=== PATIENT | female | born 1935 | race Caucasian/White ===

== ENCOUNTER → 2016-10-31 | Outpatient (CLI) | payer MEDICARE ==
--- NOTE | 2016-10-31 14:31 | US ---
EXAMINATION TYPE: US abdomen comp/pelvis limited DATE OF EXAM: 10/31/2016 1:54 PM COMPARISON: NONE CLINICAL HISTORY: R10.9 Unspecified abdominal pain. Nausea EXAM MEASUREMENTS: Liver Length: N/A Gallbladder Wall: 0.2 cm CBD: N/A Spleen: 12.5 cm Right Kidney: 9.9 x 3.5 x 4.7 cm Left Kidney: 10.8 x 4.6 x 6.7 cm elderly patient has vertigo and could not lay flat, unable to roll on her side ,large body habitus and bowel gas Pancreas: wnl Liver: unable to assess, overlying bowel gas completely obscured subcostal and intercostal views So me moderate fatty infiltration of liver is likely present. Gallbladder: wnl CBD: unable visualize Spleen: wnl Right Kidney: cortical thinning Left Kidney: cortical thinning Upper IVC: wnl Abd Aorta: calcification seen Bladder: wnl called office with tech impression @ 2:00 IMPRESSION: 1. Limited examination due to patient body habitus and level of cooperation. 2. Obvious abnormality to account for patient's abdominal pain is not evident on ultrasound.
== END | disposition home or self-care (01) ==
LOC: RADUSWWP 13:22
PROVIDERS: ATTEND Family Medicine
DX: R10.9 Unspecified abdominal pain (principal)
CPT/HCPCS: 76700; 76857

== ENCOUNTER 2017-02-11 18:22 | Inpatient (IN) | payer MEDICARE ==
[2017-02-11] MEDS ORDERED: SODIUM CHLORIDE 0.9% 1,000 ML IV STA (19:09)
[2017-02-11] MEDS ORDERED: PANTOPRAZOLE 40 MG/10 ML VIAL IVP STA (19:09)
[2017-02-11 19:12] LABS: Glucose,Whole Blood 183 mg/dL (75-99)
--- NOTE | 2017-02-11 19:13 | ED ---
General Adult HPI - General Chief complaint: Dizziness Stated complaint: dizzy/Fall/rectal bleding Time Seen by Provider: 02/11/17 18:56 Source: patient, family, RN notes reviewed Mode of arrival: wheelchair Limitations: no limitations - History of Present Illness Initial comments: Patient is a pleasant 81-year-old female presenting to the emergency department with dizziness and lightheadedness. Patient does describe dizziness as feeling lightheaded. No sweating type sensation. Symptoms are worse with upright position on exertion. Patient did have an episode prior to arrival where she almost fell. This was followed by an episode of bright red blood per rectum. Patient has been having abdominal problems for the past month or so. Patient was once seen and found it not to be the gallbladder. Patient states symptoms have been intermittent and does currently not wanting eat for days. No history of rectal bleeding prior to prior to arrival. No head injury or trauma. Patient was sweaty with lightheaded episodes. - Related Data Home Medications Medication Instructions Recorded Confirmed Aspirin [Children's Aspirin] 81 mg PO DAILY 02/11/17 02/11/17 Atorvastatin [Lipitor] 20 mg PO DAILY 02/11/17 02/11/17 Diclofenac Sodium [Diclofenac 100 mg PO DAILY 02/11/17 02/11/17 Sodium ER] Estradiol 0.5 mg PO DAILY 02/11/17 02/11/17 Furosemide [Lasix] 20 mg PO BID 02/11/17 02/11/17 Losartan-Hctz 50-12.5 mg [Hyzaar 1 tab PO BID 02/11/17 02/11/17 50-12.5] Meloxicam [Mobic] 15 mg PO DAILY 02/11/17 02/11/17 Multivitamins, Thera [Multivitamin 1 tab PO DAILY 02/11/17 02/11/17 (formulary)] [place]-3 Fatty Acids/Fish Oil [Fish 1 cap PO DAILY 02/11/17 02/11/17 Oil 1,000 mg Softgel] Ranitidine HCl 150 mg PO BID 02/11/17 02/11/17 quiNIDine SULFATE [quiNIDine 300 mg PO TID 02/11/17 02/11/17 SULFATE] Allergies Allergy/AdvReac Type Severity Reaction Status Date / Time codeine Allergy Nausea & Verified 02/11/17 19:17 Vomiting Review of Systems ROS Statement: Those systems with pertinent positive or pertinent negative responses have been documented in the HPI. ROS Other: All systems not noted in ROS Statement are negative. Constitutional: Denies: fever Eyes: Denies: eye pain ENT: Denies: ear pain Respiratory: Denies: cough Cardiovascular: Denies: chest pain Endocrine: Denies: fatigue Gastrointestinal: Reports: hematochezia. Denies: abdominal pain Genitourinary: Denies: dysuria Musculoskeletal: Denies: back pain Skin: Denies: rash Neurological: Denies: headache Past Medical History Additional Past Medical History / Comment(s): kidney stones History of Any Multi-Drug Resistant Organisms: None Reported Past Surgical History: Hysterectomy Additional Past Surgical History / Comment(s): lithotripsy Past Psychological History: No Psychological Hx Reported Smoking Status: Never smoker Past Alcohol Use History: None Reported Past Drug Use History: None Reported General Exam Limitations: no limitations General appearance: alert, in no apparent distress Head exam: Present: atraumatic Eye exam: Present: normal appearance, PERRL, EOMI ENT exam: Present: normal oropharynx Neck exam: Present: normal inspection Respiratory exam: Present: normal lung sounds bilaterally Cardiovascular Exam: Present: regular rate, normal rhythm GI/Abdominal exam: Present: soft. Absent: tenderness Rectal exam: Present: bloody stool Back exam: Present: normal inspection Neurological exam: Present: alert, CN II-XII intact. Absent: motor sensory deficit Psychiatric exam: Present: normal affect, normal mood Skin exam: Present: normal color Course Vital Signs 02/11/17 02/11/17 18:24 20:12 Temperature 99.1 F 98.7 F Pulse Rate 98 88 Respiratory 20 16 Rate Blood Pressure 149/70 154/65 O2 Sat by Pulse 99 99 Oximetry EKG Findings - EKG Comments: EKG Findings:: Normal sinus rhythm 95. [place] 186. QRS 88. QT 366. QTc 49. Left axis. Normal QRS. No acute ST change. Medical Decision Making - Medical Decision Making Results of Hemoccult are highly question as patient had gross blood on exam. Previous hemoglobin is unavailable. Secondary to high white blood cell count and borderline elevation of temperature computed tomography scan will be ordered to evaluate for possible diverticulitis. Patient was discussed in detail with practitioner Milady bolanos, who will admit for Dr. Bagley, covering for Dr. stokes, who admits for Dr. Johnson. Patient reevaluated and patient and family were updated. - Lab Data Result diagrams: 02/11/17 19:15 02/11/17 19:15 Lab Results 02/11/17 02/11/17 02/11/17 Range/Units 19:06 19:15 19:15 WBC 20.3 H (3.8-10.6) k/uL RBC 3.43 L (3.80-5.40) m/uL Hgb 9.8 L (11.4-16.0) gm/dL Hct 29.7 L (34.0-46.0) % MCV 86.4 (80.0-100.0) fL MCH 28.6 (25.0-35.0) pg MCHC 33.1 (31.0-37.0) g/dL RDW 14.4 (11.5-15.5) % Plt Count 322 (150-450) k/uL Neutrophils % 90 % Lymphocytes % 4 % Monocytes % 3 % Eosinophils % 0 % Basophils % 0 % Neutrophils # 18.4 H (1.3-7.7) k/uL Lymphocytes # 0.8 L (1.0-4.8) k/uL Monocytes # 0.7 (0-1.0) k/uL Eosinophils # 0.0 (0-0.7) k/uL Basophils # 0.1 (0-0.2) k/uL APTT (22.0-30.0) sec Sodium (137-145) mmol/L Potassium (3.5-5.1) mmol/L Chloride (98-107) mmol/L Carbon Dioxide (22-30) mmol/L Anion Gap mmol/L BUN (7-17) mg/dL Creatinine (0.52-1.04) mg/dL Est GFR (MDRD) Af Amer (>60 ml/min/1.73 sqM) Est GFR (MDRD) Non-Af (>60 ml/min/1.73 sqM) Glucose (74-99) mg/dL POC Glucose (mg/dL) 183 H (75-99) mg/dL POC Glu Nurses' Aide ID Rad [place] Calcium (8.4-10.2) mg/dL Total Bilirubin (0.2-1.3) mg/dL AST (14-36) U/L ALT (9-52) U/L Alkaline Phosphatase (38-126) U/L Total Creatine Kinase 36 (30-135) U/L CK-MB (CK-2) 0.4 (0.0-2.4) ng/mL CK-MB (CK-2) Rel Index 1.1 Troponin I <0.012 (0.000-0.034) ng/mL Total Protein (6.3-8.2) g/dL Albumin (3.5-5.0) g/dL Stool Occult Blood (Negative) Blood Type Blood Type Recheck Antibody Screen Spec Expiration Date 02/11/17 02/11/17 02/11/17 Range/Units 19:15 19:15 19:15 WBC (3.8-10.6) k/uL RBC (3.80-5.40) m/uL Hgb (11.4-16.0) gm/dL Hct (34.0-46.0) % MCV (80.0-100.0) fL MCH (25.0-35.0) pg MCHC (31.0-37.0) g/dL RDW (11.5-15.5) % Plt Count (150-450) k/uL Neutrophils % % Lymphocytes % % Monocytes % % Eosinophils % % Basophils % % Neutrophils # (1.3-7.7) k/uL Lymphocytes # (1.0-4.8) k/uL Monocytes # (0-1.0) k/uL Eosinophils # (0-0.7) k/uL Basophils # (0-0.2) k/uL APTT 26.8 (22.0-30.0) sec Sodium 143 (137-145) mmol/L Potassium 3.6 (3.5-5.1) mmol/L Chloride 108 H (98-107) mmol/L Carbon Dioxide 19 L (22-30) mmol/L Anion Gap 16 mmol/L BUN 34 H (7-17) mg/dL Creatinine 1.20 H (0.52-1.04) mg/dL Est GFR (MDRD) Af Amer 53 (>60 ml/min/1.73 sqM) Est GFR (MDRD) Non-Af 43 (>60 ml/min/1.73 sqM) Glucose 155 H (74-99) mg/dL POC Glucose (mg/dL) (75-99) mg/dL POC Glu Nurses' Aide ID Calcium 8.9 (8.4-10.2) mg/dL Total Bilirubin 0.9 (0.2-1.3) mg/dL AST 26 (14-36) U/L ALT 44 (9-52) U/L Alkaline Phosphatase 98 (38-126) U/L Total Creatine Kinase (30-135) U/L CK-MB (CK-2) (0.0-2.4) ng/mL CK-MB (CK-2) Rel Index Troponin I (0.000-0.034) ng/mL Total Protein 5.7 L (6.3-8.2) g/dL Albumin 3.4 L (3.5-5.0) g/dL Stool Occult Blood (Negative) Blood Type O Positive Blood Type Recheck No Antibody Screen NEGATIVE Spec Expiration Date 02/14/2017 - 231402/11/17 Range/Units 19:42 WBC (3.8-10.6) k/uL RBC (3.80-5.40) m/uL Hgb (11.4-16.0) gm/dL Hct (34.0-46.0) % MCV (80.0-100.0) fL MCH (25.0-35.0) pg MCHC (31.0-37.0) g/dL RDW (11.5-15.5) % Plt Count (150-450) k/uL Neutrophils % % Lymphocytes % % Monocytes % % Eosinophils % % Basophils % % Neutrophils # (1.3-7.7) k/uL Lymphocytes # (1.0-4.8) k/uL Monocytes # (0-1.0) k/uL Eosinophils # (0-0.7) k/uL Basophils # (0-0.2) k/uL APTT (22.0-30.0) sec Sodium (137-145) mmol/L Potassium (3.5-5.1) mmol/L Chloride (98-107) mmol/L Carbon Dioxide (22-30) mmol/L Anion Gap mmol/L BUN (7-17) mg/dL Creatinine (0.52-1.04) mg/dL Est GFR (MDRD) Af Amer (>60 ml/min/1.73 sqM) Est GFR (MDRD) Non-Af (>60 ml/min/1.73 sqM) Glucose (74-99) mg/dL POC Glucose (mg/dL) (75-99) mg/dL POC Glu Nurses' Aide ID Calcium (8.4-10.2) mg/dL Total Bilirubin (0.2-1.3) mg/dL AST (14-36) U/L ALT (9-52) U/L Alkaline Phosphatase (38-126) U/L Total Creatine Kinase (30-135) U/L CK-MB (CK-2) (0.0-2.4) ng/mL CK-MB (CK-2) Rel Index Troponin I (0.000-0.034) ng/mL Total Protein (6.3-8.2) g/dL Albumin (3.5-5.0) g/dL Stool Occult Blood Negative (Negative) Blood Type Blood Type Recheck Antibody Screen Spec Expiration Date - Radiology Data Radiology results: image reviewed (Chest x-ray shows no acute process) Disposition Clinical Impression: Lower GI hemorrhage Disposition: ADMITTED IP TO THIS HOSP Referrals: Gael Sharma MD [Primary Care Provider] - 1-2 days Decision Time: 20:48
[2017-02-11 19:29] LABS: Basophils # (A) 0.1 k/uL (0-0.2); Basophils % (A) 0 %; CH 28.2; CHCM 32.7; Eosinophils % (A) 0 %; HCT 29.7 % (34.0-46.0); HDW 3.09; HGB 9.8 gm/dL (11.4-16.0); Luc # (Auto) 0.39; Luc % (Auto) 2; Lymphocytes # (A) 0.8 k/uL (1.0-4.8); Lymphocytes % (A) 4 %; MCH 28.6 pg (25.0-35.0); MCHC 33.1 g/dL (31.0-37.0); MCV 86.4 fL (80.0-100.0); Mean Platelet Volume 7.2; Monocytes # (A) 0.7 k/uL (0-1.0); Monocytes % (A) 3 %; Neutrophils # (A) 18.4 k/uL (1.3-7.7); Neutrophils % (A) 90 %; RBC 3.43 m/uL (3.80-5.40); RDW 14.4 % (11.5-15.5); WBC 20.3 k/uL (3.8-10.6); WBC (Perox) 21.68
[2017-02-11 19:40] LABS: Calcium 8.9 mg/dL (8.4-10.2); Potassium 3.6 mmol/L (3.5-5.1); Total Bilirubin 0.9 mg/dL (0.2-1.3); Total Protein 5.7 g/dL (6.3-8.2)
--- NOTE | 2017-02-11 19:42 | CT ---
EXAMINATION TYPE: CT brain wo con DATE OF EXAM: 02/11/2017 COMPARISON: NONE HISTORY: Dizziness with fall injury. CT DLP: 1104.2 mGycm Automated exposure control for dose reduction was used. FINDINGS: There is cerebral cortical atrophy. There is mild hypodensity in the periventricular white matter. Th ere is no mass effect nor midline shift. There is no sign of intracranial hemorrhage. Calvarium is in tact. IMPRESSION: CEREBRAL ATROPHY AND CHRONIC SMALL VESSEL ISCHEMIA. NO ACUTE INTRACRANIAL ABNORMALITY.
[2017-02-11 19:46] LABS: Creatine Kinase 36 U/L (30-135)
[2017-02-11 19:59] LABS: Creatine Kinase MB 0.4 ng/mL (0.0-2.4); Troponin I <0.012 ng/mL (0.000-0.034)
[2017-02-11] MEDS ORDERED: RX INFO: IV CONTRAST WAS GIVEN 1 EACH MISC MISCELLANE PRN (20:47)
[2017-02-11] MEDS ORDERED: IOHEXOL 350 MG/ML 25 ML BOTTLE (ORAL USE) PO PRN (20:47)
[2017-02-11] MEDS ORDERED: NALOXONE 0.4 MG/ML 1 ML VIAL IV PRN (20:48)
[2017-02-11] MEDS ORDERED: ACETAMINOPHEN TAB 325 MG TAB PO PRN (20:48)
[2017-02-11 22:48] VITALS: BMI 35.6
[2017-02-11] MEDS: LOSARTAN-HCTZ 50-12.5 MG 1 EACH TAB PO SCH (23:09)
[2017-02-11] MEDS: SODIUM CHLORIDE 0.9% 1,000 ML IV SCH (23:10)
[2017-02-11] MEDS: FAMOTIDINE 20 MG TAB PO SCH (23:10)
--- NOTE | 2017-02-11 23:16 | CT ---
EXAM: CT Abdomen and Pelvis Without Intravenous Contrast CLINICAL HISTORY: Reason: Pain TECHNIQUE: Axial computed tomography images of the abdomen and pelvis without intravenous contrast. CTDI is 0.25, 21.43 mGy and DLP is 1187 mGy-cm. This CT exam was performed using one or more of the following dose reduction techniques: automated exposure control, adjustment of the mA and/or kV according to patient size, and/or use of iterative reconstruction technique. COMPARISON: No relevant prior studies available. FINDINGS: Lower thorax: Bibasilar scarring/atelectasis. Trace amount of oral contrast material in the distal esophagus, query reflux. ABDOMEN: Liver: Unremarkable. Gallbladder and bile ducts: Mildly distended gallbladder. Pancreas: Unremarkable. Spleen: Unremarkable. Adrenals: Bilateral adrenal thickening. Kidneys and ureters: Nonobstructing right renal calculus. Ill-defined low-attenuation in the inferior right kidney, indeterminate etiology. No hydronephrosis or ureteral stone. Stomach and bowel: Wall thickening of the distal stomach/proximal duodenum with adjacent stranding suggestive of inflammatory/infectious process. Diverticulosis with mild thickening and adjacent stranding involving the sigmoid colon, raising possibility of mild diverticulitis. No evidence of bowel obstruction. Appendix: Not visualized. PELVIS: Bladder: Unremarkable. Reproductive: Unremarkable as visualized. ABDOMEN and PELVIS: Intraperitoneal space: No free air. No significant fluid collection. Bones/joints: Degenerative changes in the spine and bilateral hips. Soft tissues: Tiny fat-containing umbilical hernia. 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 Atherosclerotic disease. Lymph nodes: Unremarkable. IMPRESSION: 1. Wall thickening of the distal stomach/proximal duodenum with adjacent stranding suggestive of inflammatory/infectious process. No evidence of free air. Differential considerations also include cholecystitis or pancreatitis, considered less likely. 2. Diverticulosis with mild thickening and adjacent stranding involving the sigmoid colon, raising possibility of mild diverticulitis. 3. Nonobstructing right renal calculus. Ill-defined low-attenuation in the inferior right kidney, indeterminate etiology. Compare to prior studies if available or consider followup ultrasound. 4. Bilateral adrenal thickening. 5. Additional incidental findings, as above.
[2017-02-12 07:38] LABS: Basophils % (A) 0 %; CH 28.1; CHCM 32.7; Eosinophils # (A) 0.1 k/uL (0-0.7); Eosinophils % (A) 1 %; HCT 22.9 % (34.0-46.0); HDW 2.94; Luc # (Auto) 0.58; Luc % (Auto) 4; Lymphocytes # (A) 1.3 k/uL (1.0-4.8); Lymphocytes % (A) 9 %; MCH 28.8 pg (25.0-35.0); MCHC 33.3 g/dL (31.0-37.0); MCV 86.6 fL (80.0-100.0); Mean Platelet Volume 7.5; Monocytes # (A) 0.6 k/uL (0-1.0); Monocytes % (A) 5 %; Neutrophils # (A) 11.6 k/uL (1.3-7.7); Neutrophils % (A) 82 %; RBC 2.64 m/uL (3.80-5.40); RDW 14.7 % (11.5-15.5); WBC 14.2 k/uL (3.8-10.6); WBC (Perox) 13.77
[2017-02-12 07:41] LABS: HGB 7.6 gm/dL (11.4-16.0)
[2017-02-12 07:45] LABS: ALT 39 U/L (9-52); AST 19 U/L (14-36); Alkaline Phosphatase 76 U/L (38-126); Anion Gap 9 mmol/L; Blood Urea Nitrogen 25 mg/dL (7-17); Calcium 8.2 mg/dL (8.4-10.2); Carbon Dioxide 25 mmol/L (22-30); Chloride 108 mmol/L (98-107); Glucose 93 mg/dL (74-99); Non-African American GFR(MDRD) 53 (>60 ml/min/1.73 sqM); Potassium 3.2 mmol/L (3.5-5.1); Sodium 142 mmol/L (137-145); Total Bilirubin 0.5 mg/dL (0.2-1.3); Total Protein 4.7 g/dL (6.3-8.2)
[2017-02-12] MEDS: LOSARTAN-HCTZ 50-12.5 MG 1 EACH TAB PO SCH (08:15)
[2017-02-12] MEDS: FAMOTIDINE 20 MG TAB PO SCH (08:15)
[2017-02-12] MEDS: PANTOPRAZOLE 40 MG/10 ML VIAL IV SCH ×2 (08:15→11:31)
[2017-02-12] MEDS: SODIUM CHLORIDE 0.9% 1,000 ML IV SCH ×2 (08:16→22:37)
[2017-02-12] MEDS ORDERED: POTASSIUM CHLORIDE ER 20 MEQ TAB.ER PO STA (10:11)
--- NOTE | 2017-02-12 11:40 | P.HPIM ---
History of Present Illness -year-old pleasant female came in with complains of dark support 3-4 episodes huge amounts started yesterday morning. With some mild epigastric abdominal discomfort. Patient does take aspirin at home. Patient is not on any anticoagulation, doesn't take any and he says never had an upper GI endoscopy or colonoscopy in the past but does have history of diverticulosis. Patient denied any fever chills. Patient became lightheaded and and had a fall and a major injury. His hemoglobin did drop by 2. see year. Patient will receive 2 units of blood transfusion today. Gastric body was consulted. Patient most probably has upper GI and bleed. Patient denied any hematemesis. Patient denied any fever or chills. Review of Systems REVIEW OF SYSTEMS: CONSTITUTIONAL: No fever, no malaise, no fatigue. HEENT: No recent visual problems or hearing problems. Denied any sore throat. CARDIOVASCULAR: No chest pain, orthopnea, PND, no palpitations, no syncope. PULMONARY: No shortness of breath, no cough, no hemoptysis. GASTROINTESTINAL: As described in HPI NEUROLOGICAL: No headaches, no weakness, no numbness. HEMATOLOGICAL: Denies any bleeding or petechiae. GENITOURINARY: Denies any burning micturition, frequency, or urgency. MUSCULOSKELETAL/RHEUMATOLOGICAL: Denies any joint pain, swelling, or any muscle pain. ENDOCRINE: Denies any polyuria or polydipsia. The rest of the 14-point review of systems is negative. Past Medical History Past Medical History: Hypertension Additional Past Medical History / Comment(s): kidney stones History of Any Multi-Drug Resistant Organisms: None Reported Past Surgical History: Hysterectomy Additional Past Surgical History / Comment(s): lithotripsy Past Psychological History: No Psychological Hx Reported Smoking Status: Never smoker - Past Family History Father Family Medical History: CVA/TIA, Hypertension Mother Family Medical History: Hypertension Medications and Allergies Home Medications Medication Instructions Recorded Confirmed Type Aspirin [Children's Aspirin] 81 mg PO DAILY 02/11/17 02/11/17 History Atorvastatin [Lipitor] 20 mg PO DAILY 02/11/17 02/11/17 History Diclofenac Sodium [Diclofenac 100 mg PO DAILY 02/11/17 02/11/17 History Sodium ER] Estradiol 0.5 mg PO DAILY 02/11/17 02/11/17 History Furosemide [Lasix] 20 mg PO BID 02/11/17 02/11/17 History Losartan-Hctz 50-12.5 mg [Hyzaar 1 tab PO BID 02/11/17 02/11/17 History 50-12.5] Meloxicam [Mobic] 15 mg PO DAILY 02/11/17 02/11/17 History Multivitamins, Thera [Multivitamin 1 tab PO DAILY 02/11/17 02/11/17 History (formulary)] [place]-3 Fatty Acids/Fish Oil [Fish 1 cap PO DAILY 02/11/17 02/11/17 History Oil 1,000 mg Softgel] Ranitidine HCl 150 mg PO BID 02/11/17 02/11/17 History quiNIDine SULFATE [quiNIDine 300 mg PO TID 02/11/17 02/11/17 History SULFATE] Allergies Allergy/AdvReac Type Severity Reaction Status Date / Time codeine Allergy Nausea & Verified 02/11/17 19:17 Vomiting Physical Exam Vitals: Vital Signs Temp Pulse Pulse Resp BP BP Pulse Ox 02/12/17 08:00 71 16 02/12/17 07:00 97.9 F 71 16 139/52 97 02/11/17 22:10 97.6 F 97 16 146/78 97 02/11/17 20:54 98.6 F 87 16 157/70 97 02/11/17 20:12 98.7 F 88 16 154/65 99 02/11/17 18:24 99.1 F 98 20 149/70 99 Intake and Output 02/11/17 02/12/17 02/12/17 22:59 06:59 14:59 Intake Total 75 600 Balance 75 600 Intake: Intake, IV Titration 75 600 Amount Sodium Chloride 0.9% 1, 75 600 000 ml @ 75 mls/hr IV . [id number] [facility] Rx#:[id number] Other: Voiding Method Toilet Toilet Bedside Commode Bedside Commode # Voids 1 2 2 # Bowel Movements 1 Weight 97 kg 97 kg Patient Weight 02/13/17 06:59 Weight 97 kg PHYSICAL EXAMINATION: GENERAL: The patient is alert and oriented x3, not in any acute distress. Well developed, well nourished. HEENT: Pupils are round and equally reacting to light. EOMI. No scleral icterus. she does have conjunctival pallor. Normocephalic, atraumatic. No pharyngeal erythema. No thyromegaly. CARDIOVASCULAR: S1 and S2 present. No murmurs, rubs, or gallops. PULMONARY: Chest is clear to auscultation, no wheezing or crackles. ABDOMEN: Soft, nontender, nondistended, normoactive bowel sounds. No palpable organomegaly. MUSCULOSKELETAL: No joint swelling or deformity. EXTREMITIES: No cyanosis, clubbing, or pedal edema. NEUROLOGICAL: Gross neurological examination did not reveal any focal deficits. SKIN: No rashes. Results CBC & Chem 7: 02/12/17 07:02/12/17 07:01 Labs: Abnormal Lab Results - Last 24 Hours (Table) 02/11/17 02/11/17 02/11/17 Range/Units 19:06 19:15 19:15 WBC 20.3 H (3.8-10.6) k/uL RBC 3.43 L (3.80-5.40) m/uL Hgb 9.8 L (11.4-16.0) gm/dL Hct 29.7 L (34.0-46.0) % Neutrophils # 18.4 H (1.3-7.7) k/uL Lymphocytes # 0.8 L (1.0-4.8) k/uL Potassium (3.5-5.1) mmol/L Chloride 108 H (98-107) mmol/L Carbon Dioxide 19 L (22-30) mmol/L BUN 34 H (7-17) mg/dL Creatinine 1.20 H (0.52-1.04) mg/dL Glucose 155 H (74-99) mg/dL POC Glucose (mg/dL) 183 H (75-99) mg/dL Calcium (8.4-10.2) mg/dL Total Protein 5.7 L (6.3-8.2) g/dL Albumin 3.4 L (3.5-5.0) g/dL Crossmatch 02/11/17 02/12/17 02/12/17 Range/Units 19:15 07:01 07:01 WBC 14.2 H (3.8-10.6) k/uL RBC 2.64 L (3.80-5.40) m/uL Hgb 7.6 L D (11.4-16.0) gm/dL Hct 22.9 L (34.0-46.0) % Neutrophils # 11.6 H (1.3-7.7) k/uL Lymphocytes # (1.0-4.8) k/uL Potassium 3.2 L (3.5-5.1) mmol/L Chloride 108 H (98-107) mmol/L Carbon Dioxide (22-30) mmol/L BUN 25 H (7-17) mg/dL Creatinine (0.52-1.04) mg/dL Glucose (74-99) mg/dL POC Glucose (mg/dL) (75-99) mg/dL Calcium 8.2 L (8.4-10.2) mg/dL Total Protein 4.7 L (6.3-8.2) g/dL Albumin 2.7 L (3.5-5.0) g/dL Crossmatch See Detail Thrombosis Risk Factor Assmnt - Choose All That Apply Any of the Below Risk Factors Present?: Yes Each Factor Represents 1 point: Obesity (BMI >25) Other Risk Factors: Yes Each Risk Factor Represents 3 Points: Age 75 years or older Other congenital or acquired thrombophilia - If yes, enter type in comment: No Thrombosis Risk Factor Assessment Total Risk Factor Score: 4 Thrombosis Risk Factor Assessment Level: Moderate Risk Assessment and Plan Plan: #1 acute GI bleed and symptomatic anemia secondary to upper GI bleed: Patient was started on hypertonic scar gastric body was consulted. I'll hold off on aspirin. Repeat CBC tomorrow. We will watch for any more clinical GI bleed. #2 attention: Hold off antiemesis medications due to acute GI bleed. Patient may have a competent of chronic anemia iron deficiency probably. 3 syncope: Due to intravascular depletion from acute GI bleed. #4 acute renal failure prerenal azotemia from acute GI bleed which is expected to improve with IV fluids and the transfusion 5 hypokalemia: Potassium will be supplemented 6 leukocytosis without any signs or symptoms of infection and the reactive in nature, monitor.
[2017-02-12 15:52] LABS: CH 28.5; CHCM 32.9; HCT 26.1 % (34.0-46.0); HDW 3.13; HGB 8.8 gm/dL (11.4-16.0); MCH 29.3 pg (25.0-35.0); MCHC 33.7 g/dL (31.0-37.0); MCV 87.1 fL (80.0-100.0); Mean Platelet Volume 6.8; RDW 14.5 % (11.5-15.5); WBC 13.2 k/uL (3.8-10.6); WBC (Perox) 13.54
[2017-02-12 16:17] LABS: Add Differential Manual Differential
[2017-02-12 16:18] LABS: Nucleated Red Blood Cells 0 /100 WBC (0-0); Total Cells Counted 100
[2017-02-12 16:19] LABS: Manual Review Performed
[2017-02-13 08:08] LABS: CH 28.5; CHCM 32.7; HDW 3.23; HGB 8.7 gm/dL (11.4-16.0); Hypochromasia Slight; MCH 29.4 pg (25.0-35.0); MCHC 33.5 g/dL (31.0-37.0); MCV 87.7 fL (80.0-100.0); Mean Platelet Volume 7.1; RBC 2.97 m/uL (3.80-5.40); RDW 14.6 % (11.5-15.5); WBC 10.3 k/uL (3.8-10.6)
[2017-02-13 08:23] LABS: Anion Gap 6 mmol/L; Blood Urea Nitrogen 9 mg/dL (7-17); Calcium 7.9 mg/dL (8.4-10.2); Carbon Dioxide 22 mmol/L (22-30); Chloride 113 mmol/L (98-107); Glucose 87 mg/dL (74-99); Non-African American GFR(MDRD) >60 (>60 ml/min/1.73 sqM); Sodium 141 mmol/L (137-145)
[2017-02-13 08:24] LABS: Potassium 3.1 mmol/L (3.5-5.1)
[2017-02-13] MEDS: ESOMEPRAZOLE 20 MG in SODIUM CHLORIDE 0.9% 50 ML IVPB SCH (09:02)
--- NOTE | 2017-02-13 10:22 | P.CONS ---
History of Present Illness - Reason for Consult Consult date: 02/13/17 Anemia rectal bleeding Requesting physician: Maria Elena Nguyen - History of Present Illness 81-year-old female presents with symptomatic anemia with lightheadedness dizziness on Sunday while washing clothes followed by with multiple episodes of painless bright red blood/clots bowel movements. No history of GI bleed or EGD colonoscopy. Denies aspirin and NSAID or antiplatelet usage. Consult requested for rectal bleeding anemia. Patient has been experiencing decreased appetite with an unintentional 15 pound weight loss over the last 3 months. Admission hemoglobin 9.8. MCV 86. White count 20. Platelet 322. Hemoglobin dropped to 7.6 received 1 unit of blood and current hemoglobin is 8.7. Patient had a small bowel movement that was burgundy-colored this morning. BUN 34. Creatinine 1.2. Denies fever chills melena or hematemesis. CT abdomen and pelvis wall thickening of distal stomach proximal duodenum with adjacent stranding suggestive of inflammatory/infectious process. Sigmoid diverticulosis possible mild diverticulitis. No bowel obstruction. Review of Systems Constitutional: Denies fever, chills, sweats, weight gain, or loss. HEENT: Negative for migraines, blurred vision or loss, earaches, drainage, tinnitus, oral mucosal lesions, dysphagia, or odynophagia. CARDIAC: Hypertension. Negative for chest pain, arrhythmias, or palpitation. RESPIRATORY: Negative for shortness of breath, hemoptysis, cough, or sputum production. GI: See HPI for pertinent findings. : Negative for hematuria, urgency, frequency, polyuria, or dysuria. GYNc: Denies possibility of . Negative vaginal discharge. MUSCULOSKELETAL: Negative for muscle aches, swelling, arthritis, and arthralgias. NEUROLOGIC: Negative for stroke or TIA. ENDOCRINE: Negative for thyroid problems. SKIN: Negative for rash or itching. PSYCHIATRIC: Negative history for depression and anxiety All systems: negative (See HPI) Past Medical History Past Medical History: Hypertension Additional Past Medical History / Comment(s): kidney stones History of Any Multi-Drug Resistant Organisms: None Reported Past Surgical History: Hysterectomy Additional Past Surgical History / Comment(s): lithotripsy Past Psychological History: No Psychological Hx Reported Smoking Status: Never smoker - Past Family History Father Family Medical History: CVA/TIA, Hypertension Mother Family Medical History: Hypertension Medications and Allergies Home Medications Medication Instructions Recorded Confirmed Type Aspirin [Children's Aspirin] 81 mg PO DAILY 02/11/17 02/11/17 History Atorvastatin [Lipitor] 20 mg PO DAILY 02/11/17 02/11/17 History Diclofenac Sodium [Diclofenac 100 mg PO DAILY 02/11/17 02/11/17 History Sodium ER] Estradiol 0.5 mg PO DAILY 02/11/17 02/11/17 History Furosemide [Lasix] 20 mg PO BID 02/11/17 02/11/17 History Losartan-Hctz 50-12.5 mg [Hyzaar 1 tab PO BID 02/11/17 02/11/17 History 50-12.5] Meloxicam [Mobic] 15 mg PO DAILY 02/11/17 02/11/17 History Multivitamins, Thera [Multivitamin 1 tab PO DAILY 02/11/17 02/11/17 History (formulary)] [place]-3 Fatty Acids/Fish Oil [Fish 1 cap PO DAILY 02/11/17 02/11/17 History Oil 1,000 mg Softgel] Ranitidine HCl 150 mg PO BID 02/11/17 02/11/17 History quiNIDine SULFATE [quiNIDine 300 mg PO TID 02/11/17 02/11/17 History SULFATE] Allergies Allergy/AdvReac Type Severity Reaction Status Date / Time codeine Allergy Nausea & Verified 02/11/17 19:17 Vomiting Physical Exam Vitals: Vital Signs Temp Pulse Pulse Resp BP BP Pulse Ox 02/13/17 08:00 69 16 02/13/17 07:00 98.2 F 62 16 141/67 92 L 02/12/17 22:25 98.3 F 69 16 140/64 94 L 02/12/17 16:00 98.2 F 80 80 16 147/68 02/12/17 15:00 98.2 F 80 16 147/68 96 02/12/17 13:10 86 158/69 02/12/17 12:46 96.9 F L 75 16 182/77 02/12/17 12:16 96.7 F L 69 26 H 142/63 02/12/17 12:06 96.7 F L 72 16 133/60 97 Intake and Output 02/12/17 02/13/17 02/13/17 22:59 06:59 14:59 Intake Total 360 600 Balance 360 600 Intake: Intake, IV Titration 600 Amount Sodium Chloride 0.9% 1, 600 000 ml @ 75 mls/hr IV . [id number] [facility] Rx#:[id number] Blood Product 310 Rc Pheresis As-3 Unit 310 [id number] Other 50 Rc Pheresis As-3 Unit 50 [id number] Other: Voiding Method Toilet Toilet Toilet Bedside Commode # Voids 1 1 1 # Bowel Movements 2 1 Weight 97 kg 97 kg Patient Weight 02/14/17 06:59 Weight 97 kg General appearance: The patient is alert, oriented, in no acute distress. HET: Head is normocephalic and atraumatic. Pupils are equal and reactive. Oropharynx is clear without lesions. Neck: Supple without lymphadenopathy. Trachea midline. Heart: S1 S2. Regular rate and rhythm. Lungs: No crackles or wheezes are heard. Abdomen: Soft, nontender, nondistended with bowel sounds. No peritoneal signs. No palpable organomegaly or masses. Extremities: Normal skin color and turgor. No cyanosis, rash, ulceration, clubbing, or edema. Radial and pedal pulses are 2/4 bilaterally. Neurological: No focal deficits. Strength and sensation are grossly intact. Rectal: Burgundy blood on finger no palpable masses. Results CBC & Chem 7: 02/13/17 07:38 02/13/17 07:38 Labs: Abnormal Lab Results - Last 24 Hours (Table) 02/11/17 02/12/17 02/13/17 Range/Units 19:15 15:28 07:38 WBC 13.2 H (3.8-10.6) k/uL RBC 3.00 L 2.97 L (3.80-5.40) m/uL Hgb 8.8 L 8.7 L (11.4-16.0) gm/dL Hct 26.1 L 26.0 L (34.0-46.0) % Neutrophils # (Manual) 11.9 H (1.3-7.7) k/uL Potassium (3.5-5.1) mmol/L Chloride (98-107) mmol/L Calcium (8.4-10.2) mg/dL Crossmatch See Detail 02/13/17 Range/Units 07:38 WBC (3.8-10.6) k/uL RBC (3.80-5.40) m/uL Hgb (11.4-16.0) gm/dL Hct (34.0-46.0) % Neutrophils # (Manual) (1.3-7.7) k/uL Potassium 3.1 L (3.5-5.1) mmol/L Chloride 113 H (98-107) mmol/L Calcium 7.9 L (8.4-10.2) mg/dL Crossmatch CT scan - abdomen: report reviewed (Dr. Steen) Assessment and Plan (1) Acute GI bleeding Narrative/Plan: Active GI bleed with painless burgundy colored bowel movements 3 days with unintentional weight loss and decreased appetite x 3 months with diverticular disease gastric duodenal wall thickening per CT. Possible diverticular bleed possible colitis however upper pathology cannot be entirely excluded. Status: Acute (2) Acute blood loss anemia Status: Acute (3) Unintentional weight loss Status: Acute (4) Decreased appetite Status: Acute Plan: 1. EGD colonoscopy tomorrow. 2. CBC at 1800 keep >8 possible blood transfusion as indicated. 3. Protonix 40 mg daily. The area manager has discussed the risks, benefits and alternative therapies for the above-mentioned procedure and for both sedation/analgesia as well as necessary blood product administration, if indicated, as they pertain to this patient. The patient has indicated understanding and acceptance of the risks and procedures discussed. Thank you for this kind referral and the opportunity to participate in the care of your patient. This consultation was discussed with Dr. Steen. The impression and plan of care have been directed as dictated.
[2017-02-13] MEDS: SODIUM CHLORIDE 0.9% 1,000 ML IV SCH (12:36)
[2017-02-13] MEDS: ONDANSETRON 4 MG/2 ML VIAL IVP PRN (14:23)
[2017-02-13] MEDS ORDERED: POTASSIUM CHLORIDE ER 20 MEQ TAB.ER PO STA (15:54)
[2017-02-13] MEDS ORDERED: PEG 3350-NA SULF,BICARB,CL/KCL 4,000 ML BOTTLE PO ONE (16:00)
[2017-02-13 18:46] LABS: Basophils # (A) 0.1 k/uL (0-0.2); Basophils % (A) 1 %; CH 28.4; CHCM 32.1; Eosinophils # (A) 0.3 k/uL (0-0.7); Eosinophils % (A) 2 %; HCT 31.6 % (34.0-46.0); HDW 3.24; HGB 10.7 gm/dL (11.4-16.0); Hypochromasia Slight; Luc # (Auto) 0.46; Luc % (Auto) 4; Lymphocytes # (A) 1.3 k/uL (1.0-4.8); Lymphocytes % (A) 10 %; MCH 30.1 pg (25.0-35.0); MCHC 33.9 g/dL (31.0-37.0); MCV 88.9 fL (80.0-100.0); Monocytes # (A) 0.6 k/uL (0-1.0); Monocytes % (A) 4 %; Neutrophils # (A) 10.2 k/uL (1.3-7.7); Neutrophils % (A) 80 %; RBC 3.56 m/uL (3.80-5.40); RDW 14.9 % (11.5-15.5); WBC 12.8 k/uL (3.8-10.6)
[2017-02-14] MEDS: SODIUM CHLORIDE 0.9% 1,000 ML IV SCH ×2 (02:57→15:52)
[2017-02-14] MEDS: LACTATED RINGERS 1,000 ML IV SCH (06:20)
[2017-02-14 07:40] LABS: Basophils # (A) 0.1 k/uL (0-0.2); Basophils % (A) 1 %; CH 28.4; CHCM 32.3; Eosinophils # (A) 0.2 k/uL (0-0.7); Eosinophils % (A) 3 %; HCT 25.4 % (34.0-46.0); HDW 3.16; Hypochromasia Slight; Luc # (Auto) 0.28; Luc % (Auto) 3; Lymphocytes # (A) 0.9 k/uL (1.0-4.8); Lymphocytes % (A) 9 %; MCH 28.6 pg (25.0-35.0); MCHC 32.4 g/dL (31.0-37.0); MCV 88.3 fL (80.0-100.0); Mean Platelet Volume 7.1; Monocytes # (A) 0.5 k/uL (0-1.0); Monocytes % (A) 5 %; Neutrophils # (A) 7.2 k/uL (1.3-7.7); Neutrophils % (A) 79 %; RBC 2.88 m/uL (3.80-5.40); WBC 9.1 k/uL (3.8-10.6); WBC (Perox) 8.85
[2017-02-14 07:46] LABS: Anion Gap 7 mmol/L; Blood Urea Nitrogen 5 mg/dL (7-17); Carbon Dioxide 24 mmol/L (22-30); Chloride 112 mmol/L (98-107); Glucose 84 mg/dL (74-99); Non-African American GFR(MDRD) >60 (>60 ml/min/1.73 sqM); Potassium 3.4 mmol/L (3.5-5.1); Sodium 143 mmol/L (137-145)
[2017-02-14 07:52] LABS: HGB 8.2 gm/dL (11.4-16.0)
[2017-02-14] MEDS ORDERED: Potassium Replacement Protocol 1 EACH MISC MISCELLANE PRN ×2 (08:11→12:25)
[2017-02-14] MEDS: ESOMEPRAZOLE 20 MG in SODIUM CHLORIDE 0.9% 50 ML IVPB SCH (08:24)
[2017-02-14] MEDS: POTASSIUM CHLORIDE 10 MEQ, LIDOCAINE 2% INJ 10 MG in SODIUM CHLORIDE 0.9% 100 ML IV SCH ×4 (09:07→13:51)
[2017-02-14] MEDS ORDERED: LIDOCAINE 1% INJ 10MG/ML (20 ML MDV) ONE (14:17)
[2017-02-14] MEDS ORDERED: GLYCOPYRROLATE 0.2 MG/ML 2 ML VIAL ONE (14:17)
[2017-02-14] MEDS ORDERED: PROPOFOL 10 MG/ML 20 ML VIAL IV ONE (14:17)
[2017-02-14] MEDS ORDERED: IV FLUID CONTINUATION 1,000 ML IV ONE (14:19)
--- NOTE | 2017-02-14 14:42 | P.PCN ---
Date of Procedure: 02/14/17 Preoperative Diagnosis: Postoperative Diagnosis: Procedure(s) Performed: Brief history: Patient is a pleasant 81-year-old white female, admitted to the hospital with acute GI bleed. She has multiple episodes of bright red blood per rectum and her initial hemoglobin was 9.5 g/dL. Never had similar symptoms in the past. She is hence scheduled for an upper endoscopy as well as colonoscopy as a part of evaluation of recent episode of acute upper GI bleed. Procedure performed: Esophagogastroduodenoscopy with biopsy Colonoscopy with biopsy and snare polypectomy Preoperative diagnosis: Acute GI bleed Anesthesia: MAC Procedure: After informed consent was obtained from the patient was brought into the endoscopy unit and IV sedation was administered by anesthesia under continuous monitoring. Initially upper endoscopy was done. The Olympus GF 160 video endoscope was inserted inserted into the mouth and esophagus intubated without any difficulty and was gradually advanced into the stomach and duodenum and carefully examined. In the bulb of the duodenum there was a 3-4 cm semicircumferential ulcer noted with a clean base and no stigmata of recent bleed. The second part of the duodenum appeared normal. The scope was then withdrawn into the stomach adequately insufflated with air and upon careful examination the antrum had gastritis and biopsies were done from this area. The body, cardia and fundus appeared normal. The scope was then withdrawn into the esophagus. The GE junction was located at 40 cm to the incisors. It appeared regular with no erythema erosions or ulcerations. Rest of the esophagus appeared normal. Patient tolerated the procedure well. At this time the patient continued to remain sedation. Initial digital rectal examination was normal. Olympus CF 160 video colonoscope was then inserted into the rectum and gradually advanced to the cecum without any difficulty. Careful examination was performed as the scope was gradually being withdrawn. The prep was excellent. The cecum, appeared normal. In the ascending colon there was a 5 mm polyp that was removed by biopsy. The rest of the ascending colon, transverse colon, descending colon, sigmoid colon and rectum appeared normal. in the rectum there was a 5 mm polyp that was removed by biopsy and a 1 cm polyp that was removed by snare polypectomy. Moderate sigmoid diverticulosis seen. Retroflexion was performed in the rectum andweight 2 internal hemorrhoidsre noted. Patient tolerated the procedure well. Impression: 1. Upper endoscopy revealed 3 cm semicircumferential ulceration with a clean base in the bulb of the duodenum with no active bleeding, and mild antral gastritis. 2. Colonoscopy revealed : a) 5 mm polyp in the ascending colon status post biopsy b) 5 mm rectal polyp serous was biopsied and 1 cm rectal polyp status post polypectomy c) moderate sigmoid diverticulosis d) grade 2 internal hemorrhoids Recommendations: Findings of this examination were discussed with the patient as well as her family. She was advised to follow with the biopsy results. She will continue with Protonix 40 mg daily and avoid NSAIDs. She will be started on clear liquid diet today and advance as tolerated tomorrow. Implants: Indications for Procedure: Operative Findings: Description of Procedure:
[2017-02-14] MEDS: ONDANSETRON 4 MG/2 ML VIAL IVP PRN (16:28)
--- NOTE | 2017-02-14 16:54 | P.PN ---
Subjective Date of service 02/13/2017. Progress note being dictated for Dr. Nguyen Interval history: This is a 81 year-old pleasant female came in with complains of dark support 3-4 episodes huge amounts started yesterday morning. With some mild epigastric abdominal discomfort. Patient does take aspirin at home. Patient is not on any anticoagulation, doesn't take any and he says never had an upper GI endoscopy or colonoscopy in the past but does have history of diverticulosis. Patient denied any fever chills. Patient became lightheaded and and had a fall and a major injury. His hemoglobin did drop by 2. so far. Patient will receive 2 units of blood transfusion today. GI was consulted. Patient most probably has upper GI and bleed. Patient denied any hematemesis. Patient denied any fever or chills. 02/13/2017 reports dark maroon clot this morning, and nauseated. Hemoglobin 10.7. Abdominal/pelvis CT reported wall thickening of the distal stomach/ proximal duodenum suggestive of inflammatory/infectious process, no free air, diverticulosis with mild thickening and adjacent stranding involving sigmoid colon, possible mild diverticulitis. Evaluated by GI, scheduled for EGD and colonoscopy tomorrow. Denies any chest pain, palpitations or increasing shortness of breath. Denies any lightheadedness dizziness or focal deficits. Objective - Vital Signs Vital signs: Vital Signs Temp 98.2 F 02/13/17 07:00 Pulse 69 02/13/17 08:00 Resp 16 02/13/17 08:00 BP 141/67 02/13/17 07:00 Pulse Ox 92 L 02/13/17 07:00 Intake & Output 02/12/17 02/13/17 02/13/17 18:59 06:59 18:59 Intake Total 1360 600 Balance 1360 600 Weight 97 kg 97 kg Intake: Intake, IV Titration 450 600 Amount Sodium Chloride 0.9% 1, 450 600 000 ml @ 75 mls/hr IV . [id number] [facility] Rx#:[id number] Oral 240 Blood Product 620 Rc Pheresis As-3 Unit 310 [id number] Other 50 Rc Pheresis As-3 Unit 50 [id number] Other: Voiding Method Toilet Toilet Toilet Bedside Commode # Voids 3 1 1 # Bowel Movements 2 1 - Exam GENERAL: Sitting up at side of bed, alert and oriented x3, no acute distress. Well developed, well nourished. HEENT: Pupils are round and equally reacting to light. EOMI. No scleral icterus. she does have conjunctival pallor. Normocephalic, atraumatic. No pharyngeal erythema. No thyromegaly. CARDIOVASCULAR: S1 and S2 present. No murmurs, rubs, or gallops. PULMONARY: Chest is clear to auscultation, no wheezing or crackles. ABDOMEN: Soft, nontender, nondistended, normoactive bowel sounds. No palpable organomegaly. No guarding, no rigidity MUSCULOSKELETAL: No joint swelling or deformity. EXTREMITIES: No cyanosis, clubbing, or pedal edema. NEUROLOGICAL: Gross neurological examination did not reveal any focal deficits. SKIN: No rashes. - Labs CBC & Chem 7: 02/14/17 07:00 02/14/17 11:39 Labs: Abnormal Lab Results - Last 24 Hours (Table) 02/11/17 02/12/17 02/13/17 Range/Units 19:15 15:28 07:38 WBC 13.2 H (3.8-10.6) k/uL RBC 3.00 L 2.97 L (3.80-5.40) m/uL Hgb 8.8 L 8.7 L (11.4-16.0) gm/dL Hct 26.1 L 26.0 L (34.0-46.0) % Neutrophils # (Manual) 11.9 H (1.3-7.7) k/uL Potassium (3.5-5.1) mmol/L Chloride (98-107) mmol/L Calcium (8.4-10.2) mg/dL Crossmatch See Detail 02/13/17 Range/Units 07:38 WBC (3.8-10.6) k/uL RBC (3.80-5.40) m/uL Hgb (11.4-16.0) gm/dL Hct (34.0-46.0) % Neutrophils # (Manual) (1.3-7.7) k/uL Potassium 3.1 L (3.5-5.1) mmol/L Chloride 113 H (98-107) mmol/L Calcium 7.9 L (8.4-10.2) mg/dL Crossmatch Assessment and Plan Plan: #1 acute GI bleed and symptomatic anemia secondary to upper GI bleed #2 possibly acute on chronic anemia iron deficiency probably. 3 syncope: Due to intravascular depletion from acute GI bleed. #4 acute renal failure prerenal azotemia from acute GI bleed 5 hypokalemia: 6 leukocytosis without any signs or symptoms of infection and the reactive in nature, monitor. 7. Ill-defined low attenuation in the inferior right kidney, bilateral adrenal thickening-incidental findings, further workup outpatient with PCP Plan: Continue on current medication regime ,monitoring and symptomatic treatment. Continue on PPI, and gentle IV fluid hydration. His monitoring of CBC with repeat labs ordered for a.m. As mentioned above scheduled for both EGD and colonoscopy tomorrow. Further recommendations to follow. The impression and plan of care has been dictated as directed. : I performed a H&P examination of this patient and discussed the same with the dictator. I agree with the dictator's note. Any additional findings/opinions/ etc. will be noted.
--- NOTE | 2017-02-14 18:33 | P.DS ---
Providers Date of admission: 02/11/17 20:48 Expected date of discharge: 02/14/17 Attending physician: Grant Nguyen Consults: 02/11/17 20:50 Consult Physician Urgent Consulting Provider: Jeff Parker Consult Reason/Comments: gi hemorrhage Do you want consulting provider notified?: Yes Primary care physician: Gael Peck [facility] Course: Final Diagnoses: #1 acute GI bleed and symptomatic anemia secondary to upper GI bleed. As post EGD colonoscopy reporting 3 cm semicircumferential duodenal ulceration- nonbleeding, in mild antral gastritis, colon and rectal polyps, moderate sigmoid diverticulosis, grade 2 internal hemorrhoids. #2 possibly acute on chronic anemia iron deficiency probably. 3 syncope: Due to intravascular depletion from acute GI bleed. #4 acute renal failure prerenal azotemia from acute GI bleed 5 hypokalemia: 6 leukocytosis without any signs or symptoms of infection and the reactive in nature, monitor. 7. Ill-defined low attenuation in the inferior right kidney, bilateral adrenal thickening-incidental findings, further workup outpatient with PCP This is a 81 year-old pleasant female came in with complains of multiple large, dark blood clots, rectal bleeding, mild epigastric abdominal discomfort, lightheadedness in a patient who takes aspirin at home. No prior upper GI endoscopy or colonoscopy. Abdominal/pelvis CT reported wall thickening of the distal stomach/proximal duodenum suggestive of inflammatory/infectious process, no free air, diverticulosis with mild thickening and adjacent stranding involving sigmoid colon, possible mild diverticulitis. Evaluated by GI, underwent EGD and colonoscopy reporting 3 cm semicircumferential duodenal ulceration-nonbleeding, in mild antral gastritis, colon and rectal polyps, moderate sigmoid diverticulosis, grade 2 internal hemorrhoids. Tolerated procedure well. Patient has been cleared by GI for discharge. Patient is being discharged home in a stable condition with guarded prognosis. The impression and plan of care has been dictated as directed as a scribe. : I performed a H&P examination of this patient and discussed the same with the dictator. I agree with the dictator's note. Any additional findings/opinions/ etc. will be noted. Patient Condition at Discharge: Stable Plan - Discharge Summary New Discharge Prescriptions: Cassius Omeprazole [PriLOSEC] 40 mg PO DAILY #30 capsule. Sucralfate [Carafate] 1 gm PO BID #28 tab Continue [place]-3 Fatty Acids/Fish Oil [Fish Oil 1,000 mg Softgel] 1 cap PO DAILY Multivitamins, Thera [Multivitamin (formulary)] 1 tab PO DAILY Estradiol 0.5 mg PO DAILY Atorvastatin [Lipitor] 20 mg PO DAILY quiNIDine SULFATE 300 mg PO TID Diclofenac Sodium [Diclofenac Sodium ER] 100 mg PO DAILY Changed Losartan-Hctz 50-12.5 mg [Hyzaar 50-12.5] 1 tab PO DAILY #0 Discontinued Meloxicam [Mobic] 15 mg PO DAILY Aspirin [Children's Aspirin] 81 mg PO DAILY Ranitidine HCl 150 mg PO BID Discharge Medication List Atorvastatin [Lipitor] 20 mg PO DAILY 02/11/17 [History] Diclofenac Sodium [Diclofenac Sodium ER] 100 mg PO DAILY 02/11/17 [History] Estradiol 0.5 mg PO DAILY 02/11/17 [History] Multivitamins, Thera [Multivitamin (formulary)] 1 tab PO DAILY 02/11/17 [History ] [place]-3 Fatty Acids/Fish Oil [Fish Oil 1,000 mg Softgel] 1 cap PO DAILY [History] quiNIDine SULFATE 300 mg PO TID 02/11/17 [History] Losartan-Hctz 50-12.5 mg [Hyzaar 50-12.5] 1 tab PO DAILY #0 02/14/17 [Rx] Omeprazole [PriLOSEC] 40 mg PO DAILY #30 capsule. 02/14/17 [Rx] Sucralfate [Carafate] 1 gm PO BID #28 tab 02/14/17 [Rx] Follow up Appointment(s)/Referral(s): Luisa Steen MD [STAFF PHYSICIAN] - 1 Week Gael Sharma MD [Primary Care Provider] - 3 Days Ambulatory/Diagnostic Orders: Complete Blood Count w/diff [LAB.AMB] Time Frame: 3 Days, Location: Determined By Patient Activity/Diet/Wound Care/Special Instructions: Pending GI clearance Ill-defined low attenuation in the inferior right kidney, bilateral adrenal thickening-incidental findings, further workup outpatient with PCP No NSAIDs Diet: Soft bland Activity: Limited until follow-up
[2017-02-14 23:26] VITALS: RESP 16
[2017-02-15] MEDS: LACTATED RINGERS 1,000 ML IV SCH (06:06)
[2017-02-15] MEDS: SODIUM CHLORIDE 0.9% 1,000 ML IV SCH (06:06)
[2017-02-15 07:17] VITALS: BP 148/67; PULSE 59; TEMP 97.9
[2017-02-15] MEDS: ESOMEPRAZOLE 20 MG in SODIUM CHLORIDE 0.9% 50 ML IVPB SCH (08:30)
--- NOTE | 2017-02-19 13:44 | CDI ---
In responding to this query, please exercise your independent professional judgment. The [facility] Coding Staff and Clinical Documentation Specialists appreciate your assistance in clarifying documentation, maintaining compliance with coding guidelines, accurately documenting patients condition and capturing severity of illness. The fact that a question is asked does not imply that any particular answer is desired or expected. Communication forms are a method of clarifying documentation and are not made part of the Legal Health Record. Thank you in advance for your clarification. Last Revision, September 2015 [employer] [employer] [address] [place] [address] Documentation Clarification Form Date: 02/19/2017 1:21:00 PM From: Lauren Crawford [facility] Admit Date: 8:48:00 PM Patient Name: Cindi Joseph Visit Number: [id number] Discharge Date: 02-15-17 Dr. Luisa Steen PLEASE LINK ANY OF THIS PATIENTS KNOW GASTROINTESTINAL DISEASES WITH SOURCE OF BLEEDING IF KNOW. SEE BELOW: PLEASE CONFIRM ALSO IF BIOPSY WAS DONE OF DUODENUM SEEN ON PATHOLOGY REPORT. Patient history/risk factors: Rectal bleed and syncope on ASA and Mobic. Discharge Summary states duodenal ulcer, colon and rectal polyps, mild antral gastritis, sigmoid diverticulosis, internal hemorrhoids, acute and chronic iron deficiency anemia, acute renal failure, hypokalemia, volume depletion, leukocytosis, bilateral adrenal thickening seen on CT and abnormal finding re: right kidney seen also on CT abdomen. EGD/colonoscopy performed and findings: "......Patient is a pleasant 81-year-old white female, admitted to the hospital with acute GI bleed. She has multiple episodes of bright red blood per rectum and her initial hemoglobin was 9.5 g/dL". Also in report-----"... In the bulb of the duodenum there was a 3-4 cm semicircumferential ulcer noted with a clean base and no stigmata of recent bleed. The second part of the duodenum appeared normal....." Labs: hgb dropped to 7.6 on 02-12. hct on admission = 29.7, dropped to 22.9 on Treatment: EGD with biopsies. Colonoscopy with bx and snare polypectomy Medication:Zofran, Protonix, Pepcid, Esomeprazole, IVF Other treatment: Transfusion 02-12-17 In your professional opinion, can you please clarify the underlying cause of GI bleed if known? Other, please specify Unable to determine Please document an addendum in your Operative Note in order to capture severity of illness and risk of mortality. Include clinical findings that support your diagnosis. FYI: Press F11 to launch patient chart If you have a question about this query, please contact Christiane Abad [employer]sembler Crimper at [phone] between 8am-5pm. GREGORY
--- NOTE | 2017-03-01 10:32 | P.PN ---
Progress Note - Text 1. Addendum discharge diagnosis: Acute GI bleeding secondary to duodenal ulcer. Status post EGD/colonoscopy.
== END 2017-02-15 10:15 | disposition home or self-care (01) | DRG 378 ==
LOC: EC 18:22 → 5MS5E 20:48
PROVIDERS: ADMIT Hospitalist; ATTEND Hospitalist
PROC: 30233N1 Transfusion of Nonautologous Red Blood Cells into Peripheral Vein, Percutaneous Approach (ICD-10-PCS; 2017-02-12)
PROC: 0DBP8ZX Excision of Rectum, Via Natural or Artificial Opening Endoscopic, Diagnostic (ICD-10-PCS; 2017-02-14)
PROC: 0DB78ZX Excision of Stomach, Pylorus, Via Natural or Artificial Opening Endoscopic, Diagnostic (ICD-10-PCS; principal; 2017-02-14 14:45)
PROC: 0DBK8ZX Excision of Ascending Colon, Via Natural or Artificial Opening Endoscopic, Diagnostic (ICD-10-PCS; 2017-02-14 14:45)
PROC: 0DBP8ZX Excision of Rectum, Via Natural or Artificial Opening Endoscopic, Diagnostic (ICD-10-PCS; 2017-02-14 14:45)
DX: K26.4 Chronic or unspecified duodenal ulcer with hemorrhage (principal); N17.9 Acute kidney failure, unspecified; D62 Acute posthemorrhagic anemia; E87.6 Hypokalemia; K29.60 Other gastritis without bleeding; K62.1 Rectal polyp; D12.2 Benign neoplasm of ascending colon; K64.1 Second degree hemorrhoids; I10 Essential (primary) hypertension; R93.421 Abnormal radiologic findings on diagnostic imaging of right kidney; K57.30 Diverticulosis of large intestine without perforation or abscess without bleeding; R55 Syncope and collapse; R63.4 Abnormal weight loss; E86.9 Volume depletion, unspecified; D72.829 Elevated white blood cell count, unspecified; Z79.82 Long term (current) use of aspirin; Z82.49 Family history of ischemic heart disease and other diseases of the circulatory system; Z79.899 Other long term (current) drug therapy; Z79.1 Long term (current) use of non-steroidal anti-inflammatories (NSAID); Z87.442 Personal history of urinary calculi; Z79.890 Hormone replacement therapy; Z88.5 Allergy status to narcotic agent; Z90.710 Acquired absence of both cervix and uterus; Z82.3 Family history of stroke; W19.XXXA Unspecified fall, initial encounter
CPT/HCPCS: 36415; 43239; 45380; 45385; 70450; 74176; 80048; 80053; 82272; 82550; 82553; 84132; 84484; 85025; 85027; 85730; 86850; 86900; 86901; 86920; 88305; 88342; 93005

== ENCOUNTER → 2017-08-30 | Outpatient (CLI) | payer MEDICARE | END | disposition home or self-care (01) | LOC: LABPAT 14:37 | PROVIDERS: ATTEND Orthopaedic Surgery | DX: Z01.818 Encounter for other preprocedural examination (principal); Z01.812 Encounter for preprocedural laboratory examination | CPT/HCPCS: 36415; 86850; 86900; 86901; 87070 ==

== ENCOUNTER 2017-09-10 09:33 | Inpatient (IN) | payer MEDICARE ==
[2017-08-30 16:02] VITALS: BMI 29.7
--- NOTE | 2017-09-09 14:27 | HP ---
HISTORY AND PHYSICAL Surgery is scheduled for 09/10/2017. Cindi Joseph 81-year-old patient seen with symptomatic right hip osteoarthritis. Treatment options were discussed. She elected to proceed with right total hip arthroplasty. Consent was obtained. Medical clearance was provided by Dr. Sharma. PAST MEDICAL HISTORY: Hypercholesterolemia, hypertension, gastroesophageal reflux disease. PAST SURGICAL HISTORY: Left total hip arthroplasty, hysterectomy. DAILY MEDICATIONS: Atorvastatin, estradiol, furosemide, losartan, omeprazole, tramadol. ALLERGIES: CODEINE. SOCIAL HISTORY: The patient denies tobacco use. PHYSICAL EVALUATION OF THE RIGHT HIP: She has very limited range of motion with severe pain. There is diffuse tenderness. Positive hip impingement sign. Straight leg raise is negative. Distal neurovascular exam is intact. RADIOGRAPHS: Radiographs of the right hip reveals severe osteoarthritis. IMPRESSION: 1. Right hip osteoarthritis. 2. Hypercholesterolemia. 3. Hypertension. 4. Gastroesophageal reflux disease. PLAN: Right total hip arthroplasty. MMODL / IJN: [id number] /
[~2017-09-10 09:33] MED LIST: HYDROmorphone 0.5 MG/0.5 ML SYRINGE IVP PRN; LIDOCAINE 1% 20 ML VIAL (10MG/ML) FOR IV START INTRADERMA PRN; MIDAZOLAM 2 MG/2 ML VIAL IV PRN; ONDANSETRON 4 MG/2 ML VIAL IVP ONE; ceFAZolin IN SWFI 2 GM/20 ML SYRINGE IVP ONE; fentaNYL (PF) 50 MCG/ML 20 ML VIAL IVP PRN
[2017-09-10] MEDS: LACTATED RINGERS 1,000 ML IV SCH (10:06)
[2017-09-10] MEDS ORDERED: LIDOCAINE 1% 20 ML VIAL (10MG/ML) FOR IV START INTRADERMA ONE (10:12)
[2017-09-10] MEDS ORDERED: TRANEXAMIC ACID 1,000 MG in SODIUM CHLORIDE 0.9% 50 ML IVPB ONE ×4 (10:15)
[2017-09-10] MEDS ORDERED: ACETAMINOPHEN TAB 500 MG TAB PO ONE (10:15)
[2017-09-10] MEDS ORDERED: MIDAZOLAM 2 MG/2 ML VIAL ONE (10:16)
[2017-09-10] MEDS ORDERED: PHENYLEPHRINE-0.9% NACL SYG 1 MG/10 ML SYRINGE ONE (10:16)
[2017-09-10] MEDS ORDERED: PROPOFOL 10 MG/ML 20 ML VIAL IV ONE (10:16)
[2017-09-10] MEDS ORDERED: LIDOCAINE 1% INJ 10MG/ML (20 ML MDV) ONE (10:16)
[2017-09-10] MEDS ORDERED: SODIUM CHLORIDE 0.9% 100 ML BAG ONE (10:16)
[2017-09-10] MEDS ORDERED: TRANEXAMIC ACID 1,000 MG/10 ML VIAL ONE (10:16)
[2017-09-10] MEDS ORDERED: fentaNYL (PF) 50 MCG/ML 2 ML AMP ONE (10:16)
[2017-09-10] MEDS ORDERED: diphenhydrAMINE 50 MG/ML 1 ML VIAL ONE (10:16)
[2017-09-10] MEDS ORDERED: ePHEDrine SULFATE/0.9% NACL/PF 50 MG/5 ML SYRINGE IV ONE (10:16)
[2017-09-10] MEDS ORDERED: ceFAZolin 1,000 MG in SODIUM CHLORIDE 0.9% 1,000 ML IRRIGATION ONE ×2 (10:47→10:48)
[2017-09-10] MEDS: ROPIVACAINE 246.25 MG, EPINEPHrine 0.5 MG, KETOROLAC 30 MG, cloNIDine HCL/PF 80 MCG, WA... MISCELLANE ONE ×10 (10:51→11:45)
[2017-09-10] MEDS ORDERED: LACTATED RINGERS 1,000 ML IV ONE (12:08)
--- NOTE | 2017-09-10 12:12 | FL ---
Fluoroscopy INDICATION: Pain FINDINGS: Fluoroscopy time: 33 seconds. Images obtained: 1. IMPRESSIONS: 1. Documentation of fluoroscopy.
[2017-09-10] MEDS ORDERED: traMADol 50 MG TAB PO PRN (12:15)
[2017-09-10] MEDS ORDERED: ONDANSETRON 4 MG/2 ML VIAL IVP PRN (12:15)
[2017-09-10] MEDS ORDERED: hydrOXYzine PAMOATE 25 MG CAP PO PRN (12:15)
[2017-09-10] MEDS ORDERED: HYDROmorphone 0.5 MG/0.5 ML SYRINGE IVP PRN ×3 (12:15)
[2017-09-10] MEDS ORDERED: NALOXONE 0.4 MG/ML 1 ML VIAL IV PRN (12:15)
--- NOTE | 2017-09-10 12:15 | P.OP ---
Date of Procedure: 09/10/17 Preoperative Diagnosis: Right hip osteoarthritis Postoperative Diagnosis: Right hip osteoarthritis Procedure(s) Performed: Direct anterior right total hip arthroplasty Implants: 1. Depuy Corail KA size 12 standard collar press-fit femoral stem 2. Depuy pinnacle press-fit acetabular shell 56 mm 3. Depuy pinnacle polyethylene acetabular liner neutral 36 mm ID 56 mm OD 4. Biolox delta ceramic femoral head +1.5 36 mm Anesthesia: local, spinal Surgeon: Itz Freeman Pesticide Applicator #1: Iker Tidwell Estimated Blood Loss (ml): 600 Pathology: other (Femoral head) Condition: stable Disposition: PACU Indications for Procedure: 81-year-old patient seen with symptomatic right hip osteoarthritis. After treatment options were discussed, she elected to proceed with total hip arthroplasty Operative Findings: See description of procedure Description of Procedure: The patient was taken to the operative suite. Patient underwent a spinal anesthetic by the department of anesthesia. Patient was then transferred to the [place] table. Patient was given preoperative IV antibiotics and TXA. Both lower extremities were placed in standard leg spars. The hip was then prepped and draped in the normal sterile orthopedic fashion. A standard anterior incision was made beginning 3 cm lateral and 1 cm distal to the ASIS extending 10 cm. Dissection was then carried down through the subcutaneous soft tissues down to the fascia overlying the tensor fascia corey. An incision was now made through the fascia. Careful dissection was taken down exposing the tensor fascia corey muscle. A Cobra retractor was now placed along the medial femoral neck and a second one along the lateral femoral neck. The venous circumflex vessels were now identified, cauterized and clipped. We identified the anterior hip capsule. An incision was made through the hip capsule along the lateral border. Tag sutures were then placed along the anterior capsule and lateral capsule. We then performed a capsulotomy. Retractors were now placed around the femoral neck itself. A Cobra retractor was now placed along the anterior acetabulum. Good exposure was now noted of the femoral head/neck complex. Residual labrum was debrided out. We placed the extremity into 3 turns of fine traction. We were then able to introduce a skid in between the femoral head and acetabulum. A placed a awl into the femoral head. We took 2 turns of traction off the extremity. Rotation was now released. The femoral head was then dislocated without difficulty. Additional releasing was performed of the capsule. The head was then reduced. All traction was released. A femoral neck cut was now made with a sagittal saw. It was completed with an osteotome at the lateral neck area. The femoral head was now removed without difficulty. There was advanced osteoarthritis of the femoral head and acetabulum. There were large osteophytes present along the anterior acetabulum that were removed utilizing an osteotome The extremity was now rotated to 60 of external rotation. It was locked in position. Residual labrum was now debrided out. Serial reaming was performed of the acetabulum. Once we reached the appropriate size and a trial was position and fit nicely. The appropriate size was now chosen opened and made available. The wound was irrigated with pulse lavage mechanical irrigation. It was introduced into the acetabulum without difficulty. The C-arm/fluoroscopy was now brought into the operative field. We made sure we had a true AP pelvic view. We now under direct C-arm/fluoroscopy introduced into the acetabular component with appropriate version and inclination. It was well seated and stable. The C-arm was pulled back. An appropriate liner was introduced and clicked into position. It was felt to be stable. At this point retractors were removed. The extremity was now placed into 120 external rotation with no traction. The leg was now dropped to the ground and adducted. Appropriate retractors were now positioned along the proximal femur. We also placed our femoral look into position. Additional capsular releasing was performed to gain access to the proximal femur. We now used a box osteotome. A canal finder was now utilized. Serial broaching was now performed until we reached the appropriate size with good overall rotational stability. Appropriate calcar planing was performed. A trial head/neck was placed into position. The hip was now reduced. The C-arm/fluoroscopy was brought back into the operative field. A spot film was obtained of the nonoperative hip. A spot film was obtained of the trial components. Overlays were performed, we noted good overall alignment and positioning for determining leg length. The C-arm/fluoroscopy was pulled back. Retractors were repositioned and the hip was dislocated. The leg was again taken down to the ground and adducted. Appropriate retractors were repositioned as well as the femoral hook. All trial components were removed. The femoral implant was opened along with the femoral head. The femoral implant was introduced with good purchase and fixation noted. The femoral head was introduced with good positioning and fixation noted. Retractors were now removed. The hip was now reduced. There appeared be good positioning of the hip. This was confirmed on fluoroscopy and spot films were obtained to document this. A second gram of TXA was given. Bipolar cautery had been utilized intermittently through the procedure for hemostasis. The wound was irrigated copiously with pulse lavage mechanical irrigation. The fascia was repaired with Vicryl suture. The subcutaneous soft tissues were repaired in layers with Vicryl suture. The skin was approximated with pernio/Dermabond. Sterile dressings were applied. Patient was then awakened, transferred to a bed and taken to recovery in stable condition. Joe HENDRIX assisted with the procedure.
[2017-09-10] MEDS ORDERED: MAGNESIUM HYDROXIDE 2,400 MG/10 ML CUP PO PRN (14:51)
[2017-09-10] MEDS: ACETAMINOPHEN TAB 325 MG TAB PO PRN (16:02)
[2017-09-10] MEDS: FUROSEMIDE 20 MG TAB PO SCH (16:06)
[2017-09-10] MEDS: QUINIDINE SULFATE 300 MG PO SCH (16:08)
[2017-09-10] MEDS: SODIUM CHLORIDE 0.9% 1,000 ML IV SCH (17:16)
[2017-09-10] MEDS: ceFAZolin IN SWFI 2 GM/20 ML SYRINGE IVP SCH (17:58)
[2017-09-10] MEDS ORDERED: ATORVASTATIN 20 MG TAB PO SCH (21:00)
[2017-09-10] MEDS ORDERED: SENNOSIDES-DOCUSATE SODIUM 1 EACH TAB PO SCH (21:00)
[2017-09-10] MEDS: LOSARTAN-HCTZ 50-12.5 MG 1 EACH TAB PO SCH (22:37)
[2017-09-11] MEDS: ACETAMINOPHEN TAB 325 MG TAB PO PRN ×2 (01:38→08:35)
[2017-09-11] MEDS: ceFAZolin IN SWFI 2 GM/20 ML SYRINGE IVP SCH (01:39)
[2017-09-11 03:07] VITALS: RESP 16
[2017-09-11] MEDS ORDERED: PANTOPRAZOLE 40 MG TABLET PO SCH (07:30)
[2017-09-11 07:52] VITALS: TEMP 98.1
--- NOTE | 2017-09-11 07:52 | CONS ---
CONSULTATION DATE OF CONSULTATION: 09/10/2017 REASON FOR CONSULTATION: Medical management requested by Dr. Freeman. CONSULTATION: This is a very pleasant 81-year-old patient of Dr. Sharma. Has undergone a right total hip arthroplasty. Some pain is present. No nausea, vomiting. Did tolerate supper. No chest pain. Chronic stable medical conditions include duodenal ulcer, sigmoid diverticulosis, hypertension, hyperlipidemia. Post , sitting up in bed. REVIEW OF SYSTEMS: CONSTITUTIONAL: None. HEENT: None. RESPIRATORY: None. CARDIOVASCULAR: None. GASTROINTESTINAL: None. GENITOURINARY: None. MUSCULOSKELETAL: Arthritic pain in joints. DERMATOLOGICAL: None. HEMATOLOGIC: None. LYMPHATIC: None. PSYCHIATRY: None. NEUROLOGICAL: None. PAST MEDICAL HISTORY: Past medical history of duodenal ulcer, sigmoid diverticulosis, internal hemorrhoids, hypertension, hyperlipidemia, kidney stones. PAST SURGICAL HISTORY: Hysterectomy, joint replacement, lithotripsy. SOCIAL HISTORY: No smoking. No alcohol. . FAMILY HISTORY: Stroke and hypertension. HOME MEDICATIONS: 1. Ultram 50 mg q.6 p.r.n. 2. Quinidine 300 mg p.o. t.i.d. 3. Prilosec 20 mg p.o. with breakfast. 4. Multivitamin 1 tablet p.o. daily. 5. Milk of magnesia 1 tablet p.o. daily p.r.n. 6. Hyzaar 50/12.5 one tablet p.o. b.i.d. 7. Lasix 20 mg p.o. b.i.d. 8. Estradiol 0.5 mg p.o. daily. 9. Lipitor 20 mg q.h.s. 10.Tylenol Extra Strength 500 mg q.6 p.r.n. ALLERGIES: CODEINE and NSAID. PHYSICAL EXAMINATION: On examination, temperature 98.6, pulse 67, respiration 20, blood pressure 145/57, pulse ox 100% on room air. GENERAL APPEARANCE: Average built, sitting up, comfortable. EYES: Pupils equal. Conjunctivae normal. HENT: External appearance of nose and ears normal. Oral cavity normal. NECK: JVD not raised. Mass not palpable. RESPIRATORY: Effort normal. Lungs are clear. CARDIOVASCULAR: First and second sounds normal. No edema. ABDOMEN: Soft, nontender. Liver and spleen not palpable. LYMPHATIC: No lymph node palpable in the neck and axillae. PSYCHIATRY: Alert and oriented x3. Mood and affect normal. NEUROLOGICAL: Pupils equal. Cranial nerves grossly intact. Power and sensation grossly intact. EXTREMITIES: Dressing over the right hip. INVESTIGATIONS: No blood work. ASSESSMENT: 1. Right total hip arthroplasty. 2. Peptic ulcer disease with history of duodenal ulcer. 3. Sigmoid diverticulosis, asymptomatic. 4. Essential hypertension. 5. Hyperlipidemia. PLAN: Home medications will be resumed. DVT prophylaxis per Dr. Freeman. Care was discussed with the patient. Thank you Dr. Freeman. MMODL / IJN: [id number] /
[2017-09-11 08:05] LABS: HCT 29.1 % (34.0-46.0); HGB 8.6 gm/dL (11.4-16.0); Hypochromasia Marked; MCH 25.9 pg (25.0-35.0); MCHC 29.5 g/dL (31.0-37.0); MCV 87.9 fL (80.0-100.0); Mean Platelet Volume 7.4; Platelet Count 176 k/uL (150-450); RBC 3.31 m/uL (3.80-5.40); RDW 14.3 % (11.5-15.5); WBC 6.9 k/uL (3.8-10.6)
[2017-09-11] MEDS: FUROSEMIDE 20 MG TAB PO SCH (08:36)
[2017-09-11] MEDS: LOSARTAN-HCTZ 50-12.5 MG 1 EACH TAB PO SCH (08:36)
[2017-09-11] MEDS: SODIUM CHLORIDE 0.9% 1,000 ML IV SCH (08:37)
[2017-09-11] MEDS: LACTATED RINGERS 1,000 ML IV SCH (08:39)
[2017-09-11] MEDS: QUINIDINE SULFATE 300 MG PO SCH ×2 (08:39→11:42)
[2017-09-11] MEDS ORDERED: ESTRADIOL 0.5 MG TAB PO SCH (09:00)
[2017-09-11] MEDS ORDERED: FAMOTIDINE 20 MG TAB PO SCH (09:00)
[2017-09-11] MEDS ORDERED: ENOXAPARIN 40 MG/0.4 ML SYRINGE SQ SCH (09:00)
[2017-09-11 09:23] LABS: Eosinophils # (M) 0.14 k/uL (0-0.7); Lymphocytes # (M) 0.41 k/uL (1.0-4.8); Monocytes # (M) 0.62 k/uL (0-1.0); Neutrophils # (M) 5.73 k/uL (1.3-7.7); Neutrophils % (M) 83 %; Nucleated Red Blood Cells 0 /100 WBC (0-0); Total Cells Counted 100
--- NOTE | 2017-09-11 10:31 | P.PN ---
Subjective Progress Note Date: 09/11/17 Principal diagnosis: s/p right roderick Patient is seen today resting in her hospital chair, she appears comfortable. She's very well with physical therapy, she is done stairs. She is urinating on her own. She denies any headaches, lightheadedness, chest pain or shortness of breath. Objective - Vital Signs Vital signs: Vital Signs Temp 98.1 F 09/11/17 07:51 Pulse 67 09/11/17 07:51 Resp 16 09/11/17 07:51 BP 128/58 09/11/17 07:51 Pulse Ox 98 09/11/17 07:51 Intake & Output 09/10/17 09/11/17 09/11/17 18:59 06:59 18:59 Intake Total 1227 1400 Output Total 150 Balance 1077 1400 Weight 81.193 kg Intake: IV 1202 Intake, IV Titration 25 400 Amount Sodium Chloride 0.9% 1, 25 400 000 ml @ 50 mls/hr IV . Q20H MARIAM Rx#:[id number] Oral 1000 Output: Estimated Blood Loss 150 Other: # Voids 0 1 1 - Exam Right lower extremity: Incision is clean, dry, and intact. The prineo tape is in good condition. There is minimal soft tissue swelling and ecchymosis surrounding the medial and lateral aspects of the incision. Calf is soft, no tenderness with palpation. Plantar flexion, dorsiflexion, EHL, FHL are intact. Sensory exam to light touch throughout the extremity is intact, dorsal pedis pulses 2+. - Labs CBC & Chem 7: 09/11/17 07:21 Labs: Abnormal Lab Results - Last 24 Hours (Table) 09/11/17 Range/Units 07:21 RBC 3.31 L (3.80-5.40) m/uL Hgb 8.6 L (11.4-16.0) gm/dL Hct 29.1 L (34.0-46.0) % MCHC 29.5 L (31.0-37.0) g/dL Lymphocytes # (Manual) 0.41 L (1.0-4.8) k/uL Assessment and Plan Plan: Assessment: 1. Postop day 1 status post right total hip arthroplasty Plan: 1. Pain control, patient would like to use Tylenol 2. GI and DVT prophylaxis, Lovenox 40 mg subcu daily for 30 days 3. Wound care instructions discussed 4. Home therapy and nursing after discharge 5. Medical recommendations 6. Discharge planning: Patient will be discharged home today Time with Patient: Less than 30
--- NOTE | 2017-09-11 10:33 | P.DS ---
Providers Date of admission: 09/10/17 09:33 Expected date of discharge: 09/11/17 Attending physician: Itz Freeman Consults: 09/10/17 12:15 Consult Physician Routine Consulting Provider: Oscar Cintron Consult Reason/Comments: Medical management Do you want consulting provider notified?: Yes Primary care physician: Gael Sharma [facility] Course: Date of admission: 09/10/2017 Date of discharge: 09/11/2014 Admission diagnosis: Status post right total hip arthroplasty Discharge diagnosis: Same Attending physician: Dr. Freeman Surgical procedures: Right total hip arthroplasty Brief history: Patient is a 81-year-old female with a history of aggressive primary right hip osteoarthritis. At this point patient has failed conservative treatment measures and has opted to proceed with a elective right total hip arthroplasty. Hospital course: Details of patient's surgery can be found in operative report. Patient tolerated the procedure well and was subsequently transported to orthopedic floor. Patient's orthopeidc and medical care was provided daily. Patient had daily laboratory tests performed for evaluation of overall blood counts. Patient had daily physical therapy to include strengthening range of motion as well as education with walker ambulation. Patient was treated with Lovenox for their postoperative DVT prophylaxis during their inpatient stay. Patient was noted to have a relatively uneventful postoperative course. Patient reported satisfactory pain control with oral pain medications by postoperative day 0. Patient showed satisfactory progress with physical therapy. Patient moved steadily through the program and had no difficulty meeting the goals by postoperative day 1. Given patient's otherwise satisfactory course and having met physical therapy goals, plan is to discharge patient home on postoperative day 1. Discharge condition/disposition: Patient will be discharged home in stable condition. Discharge medications: Instructions are given on resumption of patient's normal daily medications per primary care recommendation, in addition patient will be prescribed Colace 100 mg, Lovenox 40 mg, ferrous sulfate 325 mg. Discharge instructions: 1. Wound care and infection precautions, keep incision dry and covered while showering, no lotions, creams, moisturizers. No soaking, tubs, pools, hottubs. Do not scrub over the incision. 2. Weight-bear as tolerated with walker / cane until follow-up. 3. Ice and elevate when necessary. Do not exceed 20 minutes per hour with ice pack. 4. Utilize compression sleeve until seen at first follow up appointment. 5. Visiting nursing care. 6. Home physical therapy. 7. Pain meds and anticoagulants per prescription. 8. Pain medication has potential to cause constipation. Increase oral fluid and fiber intake. Contact primary care provider if you have not had a bowel movement within 48 hours after discharge 9. No anti-inflammatory medication until discussed at first post operative visit, this including Motrin, Aleve, Mobic, Diclofenac. 10. Follow up in office at 2 weeks postop with Joe Tidwell PA-C 11. Follow up with your primary care doctor 7-10 days after discharge. 12. Contact [facility] with any questions, . Procedures: Right total hip arthroplasty Patient Condition at Discharge: Good Plan - Discharge Summary Discharge Rx Participant: Yes New Discharge Prescriptions: New Docusate [Colace] 100 mg PO DAILY #30 capsule Enoxaparin [Lovenox] 40 mg SQ DAILY #30 syringe Ferrous Sulfate [Feosol] 325 mg PO BID #30 tab No Action Multivitamins, Thera [Multivitamin (formulary)] 1 tab PO DAILY Estradiol 0.5 mg PO DAILY Atorvastatin [Lipitor] 20 mg PO HS quiNIDine SULFATE 300 mg PO TID Omeprazole [PriLOSEC] 20 mg PO AC-BRKFST Furosemide [Lasix] 20 mg PO BID Acetaminophen [Tylenol Extra Strength] 500 mg PO Q6HR PRN PRN Reason: Pain Losartan-Hctz 50-12.5 mg [Hyzaar 50-12.5] 1 tab PO BID Milk Of Magnesia (Unknown Dose 1 tab PO DAILY PRN PRN Reason: Constipation traMADol HCL [Ultram] 50 mg PO Q6HR PRN PRN Reason: Pain Discharge Medication List Atorvastatin [Lipitor] 20 mg PO HS 02/11/17 [History] Estradiol 0.5 mg PO DAILY 02/11/17 [History] Multivitamins, Thera [Multivitamin (formulary)] 1 tab PO DAILY 02/11/17 [History ] quiNIDine SULFATE 300 mg PO TID 02/11/17 [History] Acetaminophen [Tylenol Extra Strength] 500 mg PO Q6HR PRN 05/25/17 [History] Furosemide [Lasix] 20 mg PO BID 05/25/17 [History] Losartan-Hctz 50-12.5 mg [Hyzaar 50-12.5] 1 tab PO BID 05/25/17 [History] Milk Of Magnesia (Unknown Dose 1 tab PO DAILY PRN 05/25/17 [History] Omeprazole [PriLOSEC] 20 mg PO AC-BRKFST 05/25/17 [History] traMADol HCL [Ultram] 50 mg PO Q6HR PRN 08/30/17 [History] Docusate [Colace] 100 mg PO DAILY #30 capsule 09/11/17 [Rx] Enoxaparin [Lovenox] 40 mg SQ DAILY #30 syringe 09/11/17 [Rx] Ferrous Sulfate [Feosol] 325 mg PO BID #30 tab 09/11/17 [Rx] Follow up Appointment(s)/Referral(s): [facility], [NON-STAFF] - (Accepted patient and will follow post discharge.) Iker Tidwell PAC [PHYSICIAN STREET CLEANER] - 09/26/17 1:50 pm Gael Sharma MD [Primary Care Provider] - 09/19/17 1:15 pm Ambulatory/Diagnostic Orders: Complete Blood Count w/diff [LAB.AMB] Location: Determined By Patient Patient Instructions/Handouts: Enoxaparin (By injection), Total Hip Replacement (DC) Activity/Diet/Wound Care/Special Instructions: Orthopedic Discharge Instructions: 1. Wound care and infection precautions, keep incision dry and covered while showering, no lotions, creams, moisturizers. No soaking, pools, hot tubs. Do not scrub over incision. 2. Weight-bear as tolerated with walker / cane until follow-up. 3. Ice and elevate when necessary. Do not exceed 20 minutes per hour with ice pack. 4. Utilize compression sleeve until seen at first follow up appointment. 5. Visiting nursing care. 6. Home physical therapy. 7. Pain meds and anticoagulants per prescription. 8. Pain medication has potential to cause constipation. Increase oral fluid and fiber intake. Contact primary care provider if you have not had a bowel movement within 48 hours after discharge. 9. No anti-inflammatory medication until discussed at first post operative visit, this including Motrin, Aleve, Mobic, Diclofenac. 10. Follow up in office at 2 weeks postop with Joe Tidwell PA-C 11. Follow up with your primary care doctor 7-10 days after discharge. 12. Contact [facility] with any questions, . Discharge Disposition: HOME WITH HOME HEALTH SERVICES
[2017-09-11 11:43] VITALS: PULSE 60
[2017-09-11 11:57] VITALS: BP 150/68
[2017-09-11] MEDS ORDERED: MULTIVITAMINS, THERA 1 EACH TAB PO SCH (12:00)
--- NOTE | 2017-09-11 18:59 | P.PN ---
Progress Note - Text Progress Note Date: 09/11/17 DATE OF SERVICE: 09/11/2017 REASON FOR CONSULTATION: Medical management requested by Dr. Freeman HISTORY OF PRESENT ILLNESS: 81-year-old male with symptomatic right hip osteoarthritis, elected for operative intervention hence status post right total hip arthroplasty. INTERVAL HISTORY: 09/11/2017: Lying in bed, no complaints, has some pain no nausea or vomiting. States pain is well controlled. Tolerating his meals. He ate between 50 and 75% of his meals. Agreeable to work with physical therapy. Last BM prior to admission. REVIEW OF SYSTEMS: Done for constitutional ,cardiovascular, GI, pulmonary with relevant findings as above. CURRENT MEDICATIONS Tylenol, Lipitor, Kefzol, Lovenox, Estrace, Pepcid, Lasix, Hyzaar, Dilaudid, Vistaril, milk of magnesia, Versed, multivitamin, Zofran, Protonix, Senokot-S, Ultram. PHYSICAL EXAM VITAL SIGNS: Temperature 98.1, pulse 67, respiratory rate 16, blood pressure 120/58, oxygen saturation 98% on room air. GENERAL APPEARANCE: Lying in bed, family at the bedside in good spirits not in distress. HENT: Normocephalic, JVD not raised. Mass not palpable. Oral cavity normal, external appearance of ears and nose normal. EYES:Pupils equal. Conjunctiva normal. RESPIRATORY: Respiratory effort normal. Lungs clear to auscultation. CARDIOVASCULAR: First and second sounds normal. No edema. ABDOMEN: Soft. Liver and spleen not palpable. No tenderness. No mass palpable. PSYCHIATRY: Alert and oriented x3. Mood and affect normal. Extremity: Dressing over the right hip no drainage noted. INVESTIGATIONS: LABS: Hemoglobin 8.6, ASSESSMENT: -Right total hip arthroplasty in a patient with symptomatic osteoarthritis of the right hip. -Acute blood loss anemia as expected from surgery in a patient who is status post right total hip arthroplasty. -Peptic ulcer disease with history of duodenal ulcer. -Sigmoid diverticulosis, asymptomatic. -Essential hypertension. -Hyperlipidemia. -Primary osteoarthritis of the hips and knees PLAN: Overall medical condition stable and is appropriate for discharge. Plan to discharge home with home care later today per orthopedics PARCEL CARRIER statement: Patient was seen and examined by nurse practitioner Ana Alfredo and all elements of the case discussed with attending Dr. Cintron
--- NOTE | 2017-09-11 20:31 | PN ---
PROGRESS NOTE DATE OF SERVICE: 09/11/2017. ATTENDING NOTE: This patient was seen and examined by me. I discussed the case with the nurse practitioner Ms. Alfredo. Patient is doing well. Pain controlled. On examination, lungs are clear. CARDIOVASCULAR: First and second sounds normal. Hemoglobin 8.6. ASSESSMENT: 1. Right total hip arthroplasty. 2. Acute blood loss anemia, expected from surgery, stable. Patient is doing well. MMODL / IJN: [id number] /
== END 2017-09-11 14:10 | disposition home health service (06) | DRG 470 ==
LOC: 2ORMAIN 09:33 → 3SUR 12:14
PROVIDERS: ADMIT Orthopaedic Surgery; ATTEND Orthopaedic Surgery
PROC: 0SR904A Replacement of Right Hip Joint with Ceramic on Polyethylene Synthetic Substitute, Uncemented, Open Approach (ICD-10-PCS; principal; 2017-09-10 11:00)
DX: M16.11 Unilateral primary osteoarthritis, right hip (principal); Z96.642 Presence of left artificial hip joint; D62 Acute posthemorrhagic anemia; E78.00 Pure hypercholesterolemia, unspecified; I10 Essential (primary) hypertension; K21.9 Gastro-esophageal reflux disease without esophagitis; M25.751 Osteophyte, right hip; M17.0 Bilateral primary osteoarthritis of knee; Z87.442 Personal history of urinary calculi; Z90.710 Acquired absence of both cervix and uterus; Z82.3 Family history of stroke; Z82.49 Family history of ischemic heart disease and other diseases of the circulatory system; Z79.899 Other long term (current) drug therapy; Z87.11 Personal history of peptic ulcer disease; Z87.19 Personal history of other diseases of the digestive system; Z88.6 Allergy status to analgesic agent; Z88.8 Allergy status to other drugs, medicaments and biological substances
CPT/HCPCS: 36415; 73501; 85025; 86850; 86900; 86901; 88300

== ENCOUNTER → 2018-07-15 | Outpatient (CLI) | payer MEDICARE | END | disposition home or self-care (01) | LOC: LABPAT 10:22 | PROVIDERS: ATTEND Orthopaedic Surgery | DX: Z01.812 Encounter for preprocedural laboratory examination (principal) | CPT/HCPCS: 87070 ==

== ENCOUNTER 2018-08-05 11:09 | Day surgery (SDC) | payer MEDICARE ==
[2018-07-24 15:29] VITALS: BMI 33.6
--- NOTE | 2018-08-04 14:31 | HP ---
HISTORY AND PHYSICAL REASON FOR ADMISSION: Surgery scheduled 08/05/2018 Cindi Joseph is an 82-year-old patient seen with symptomatic right knee osteoarthritis. After having treatment options discussed, she elected to proceed with right total knee arthroplasty. Consent regarding procedure was obtained. Medical clearance was provided by Dr. Sharma. PAST MEDICAL HISTORY: Hyperlipidemia, hypertension, gastroesophageal reflux disease. PAST SURGICAL HISTORY: Hysterectomy. DAILY MEDICATIONS: Atorvastatin, estradiol, losartan, omeprazole, Quinidine. ALLERGIES: CODEINE. SOCIAL HISTORY: Patient denies tobacco use. PHYSICAL EXAMINATION: Evaluation of the right knee: Range of motion is -6 to 115 degrees. There is tenderness along the medial and lateral joint lines. There is crepitus along the medial compartment and patellofemoral compartments with range of motion. There is pain with patellofemoral compression. Ligaments are stable. Hip rotation is without pain. Distal neurovascular exam is intact. RADIOGRAPHS: Radiographs of the right knee revealed severe medial moderate to severe patellofemoral compartment osteoarthritis. IMPRESSION: 1. Right knee osteoarthritis. 2. Hypertension. 3. Hyperlipidemia. 4. Gastroesophageal reflux disease. PLAN: Right total knee arthroplasty. Surgery is 08/05/2018. MMODL / IJN: [id number] /
[~2018-08-05 11:09] MED LIST changes: +ACETAMINOPHEN TAB 500 MG TAB PO ONE; -HYDROmorphone 0.5 MG/0.5 ML SYRINGE IVP PRN; +MELOXICAM 7.5 MG TAB PO ONE; +MIDAZOLAM (PF) 2 MG/2 ML VIAL IV PRN; -MIDAZOLAM 2 MG/2 ML VIAL IV PRN; -ONDANSETRON 4 MG/2 ML VIAL IVP ONE; +TRANEXAMIC ACID 1,000 MG in SODIUM CHLORIDE 0.9% 50 ML IVPB ONE; +fentaNYL (PF) 50 MCG/ML 2 ML AMP IV PRN; -fentaNYL (PF) 50 MCG/ML 20 ML VIAL IVP PRN
[2018-08-05] MEDS: LACTATED RINGERS 1,000 ML IV SCH (11:52)
[2018-08-05] MEDS ORDERED: ONDANSETRON 4 MG/2 ML VIAL IVP ONE (11:58)
[2018-08-05] MEDS ORDERED: DEXAMETHASONE SOD PHOS (MDV) 100 MG/10 ML VIAL IV ONE (11:58)
[2018-08-05] MEDS ORDERED: MIDAZOLAM 2 MG/2 ML VIAL IV ONE (12:14)
[2018-08-05] MEDS ORDERED: ROPIVACAINE 246.25 MG, EPINEPHrine 0.5 MG, KETOROLAC 30 MG, cloNIDine HCL/PF 80 MCG, WA... MISCELLANE ONE ×5 (12:35)
[2018-08-05] MEDS ORDERED: ROPIVACAINE 1,100 MG, SODIUM CHLORIDE 0.9% 500 ML 330 ML MISCELLANE PRN ×2 (12:43)
--- NOTE | 2018-08-05 12:43 | P.ONQ ---
Anesthesiology Proc Note - PNB - Peripheral Nerve Block Performed Right Adductor Canal Infusion Time Out Performed: Yes Procedure Start Time: 12:12 Procedure Stop Time: :22 Indication: Acute Post-Operative Pain, Requested by physician (Dr Freeman) Sedation Type: Sedate with meaningful contact maintained Preparation: Sterile Prep Position: Supine Catheter: Indwelling Needle Types: Grace Needle Size: 100mm (4") Needle Gauge: 18 Technique: Ultrasound Injectate: 0.5% Ropivacaine (see comment for volume) (30 ml) Blood Aspirated: No Pain Paresthesia on Injection Noted: No Resistance on Injection: Normal Events: Uneventful and Well Tolerated
[2018-08-05] MEDS ORDERED: PROPOFOL 10 MG/ML 20 ML VIAL IV ONE (12:58)
[2018-08-05] MEDS ORDERED: fentaNYL (PF) 50 MCG/ML 2 ML AMP ONE (12:58)
[2018-08-05] MEDS ORDERED: TRANEXAMIC ACID 1,000 MG/10 ML VIAL ONE (12:58)
[2018-08-05] MEDS ORDERED: SODIUM CHLORIDE 0.9% 100 ML BAG ONE (12:58)
[2018-08-05] MEDS ORDERED: MIDAZOLAM 2 MG/2 ML VIAL ONE (12:58)
[2018-08-05] MEDS ORDERED: ceFAZolin 3,000 MG in SODIUM CHLORIDE 0.9% IRRIGATIO 3,000 ML IRRIGATION ONE (13:38)
[2018-08-05] MEDS ORDERED: LACTATED RINGERS 1,000 ML IV ONE (13:50)
[2018-08-05] MEDS ORDERED: NALOXONE 0.4 MG/ML 1 ML VIAL IV PRN (14:58)
[2018-08-05] MEDS ORDERED: HYDROmorphone 0.5 MG/0.5 ML SYRINGE IVP PRN ×3 (14:58)
--- NOTE | 2018-08-05 14:58 | P.OP ---
Date of Procedure: 08/05/18 Preoperative Diagnosis: Right knee osteoarthritis Postoperative Diagnosis: Right knee osteoarthritis Procedure(s) Performed: Right total knee arthroplasty Implants: 1. Depuy attune size 5 narrow cruciate retaining cemented femur 2. Depuy attune size 4 fixed bearing cruciate-retaining cemented tibial baseplate 3. Depuy attune fixed bearing size 5 5 mm polyethylene tibial insert 4. Depuy attune 35 mm all polyethylene cemented patella Anesthesia: regional (Adductor canal catheter), local, spinal Surgeon: Itz Freeman Rear Admiral #1: Iker Tidwell Estimated Blood Loss (ml): 40 Pathology: other (Bone) Condition: stable Disposition: PACU Indications for Procedure: 82-year-old patient seen with right knee osteoarthritis. After treatment options discussed, she elected to proceed with total knee arthroplasty Operative Findings: see description of procedure Description of Procedure: Patient was taken to the operative suite after having an adductor canal catheter placed by the department of anesthesia. Patient underwent a spinal anesthetic by the department of anesthesia. Patient was given preoperative IV intake antibiotics and TXA. A well-padded tourniquet was placed about the right lower extremity. The lower extremity was then prepped and draped in the normal sterile orthopedic fashion. The extremity was elevated, a tourniquet was insufflated to 300. A standard anterior incision was made sharply through skin. Dissection was taken down through the subcutaneous soft tissues down to the extensor mechanism. A medial arthrotomy was performed, patella was everted and knee was flexed. There was advanced osteoarthritis noted. I introduced my distal intramedullary femoral drill. I then introduced the distal femoral cutting jig. Joe HENDRIX secured the cutting jig with 2 pins. I held retractors in position while Joe HENDRIX performed the distal femoral resection through the guide area we now removed her distal femoral cutting guide. We now placed our 4-in-1 femoral cutting block and positioned and it was secured with 2 pins by Joe HENDRIX while I held the block in position. The distal femoral finishing was now completed. A proximal tibial cutting guide was positioned. I held the guide in the appropriate position with both hands well Joe HENDRIX inserted stabilizing pins into the guide. Proximal tibial cut was made. We now placed a trial femoral component into position, along with an appropriate size tibial tray and insert. We now took the knee through range of motion and had full extension good flexion and good overall soft tissue balance noted. The patella was everted and stabilized with 2 towel clips held by Joe HENDRIX while I performed a flush with patellar quad tendon utilizing a fresh sawblade. We templated the patella, appropriate drill holes were made. An appropriate trial patella was positioned, knee was taken through full range of motion with the patella tracking very nicely. The trial patella was removed. Drill holes were made through the femoral component. All trial components were removed after marking off the appropriate rotation of the tibia. Retractors were now positioned along the proximal tibia. An appropriate keel punch was made with the appropriate size tibial guide by myself on Joe HENDRIX assisted by holding retractors. At this point appropriate size implants were chosen and opened. The joint was irrigated copiously with pulse lavage mechanical irrigation. The posterior capsule was infiltrated with local analgesic. The wound was irrigated with pulse lavage mechanical irrigation. We mixed antibiotic methylmethacrylate. We placed the knee into flexion. We placed multiple retractors assisted by Joe HENDRIX to expose the proximal tibia. Once the methyl methacrylate was ready, the tibial component was cemented into place removing any excess methylmethacrylate form by both myself and Joe HENDRIX. The femoral component was cemented into place removing the removing any excess methylmethacrylate performed by both myself and Joe HENDRIX. We then inserted the appropriate size polyethylene tibial insert. We made sure that it was locked into position. We took the knee into full extension, and then back in a flexion making sure we had removed any excess methylmethacrylate. The patellar component was then cemented down and secured with clamp. Excess methylmethacrylate removed. We kept the knee in full extension, patellar clamp in position until methylmethacrylate had hardened. Once it had hardened the patellar clamp was removed. The knee was taken through full range of motion. The patella tracked nicely. There was good soft tissue balancing. The tourniquet was now released. Additional hemostasis was achieved via electrocautery. A second gram of TXA was given. The wound again was irrigated with pulse lavage mechanical irrigation. The superficial soft tissues were infiltrated local analgesic. The extensor mechanism was repaired with Vicryl. We checked the repair with range of motion and it was stable. The subcutaneous soft tissues were repaired with Vicryl in layers. The skin was approximated with pernio/Dermabond. Sterile dressings were applied followed by loose web roll and Kale bandage. The patient was transferred to a bed, and taken to recovery in stable and satisfactory condition. Joe HENDRIX assisted with this complex procedure.
--- NOTE | 2018-08-05 15:51 | XR ---
Right knee HISTORY: Status post right knee arthroplasty 2 views of the right knee Patient is status post right knee arthroplasty. There is anatomic alignment. Lucency is present in th e soft tissues. IMPRESSION: Orthopedic follow-up.
[2018-08-05] MEDS ORDERED: ceFAZolin IN SWFI 2 GM/20 ML SYRINGE IVP SCH (18:00)
[2018-08-05] MEDS ORDERED: hydrALAZINE HCL 20 MG/ML 1 ML VIAL IVP ONE (18:21)
[2018-08-05] MEDS ORDERED: ceFAZolin 1,000 MG/50 ML BAG (PMX) IVPB ONE (19:24)
[2018-08-05] MEDS: SODIUM CHLORIDE 0.9% 1,000 ML IV SCH (21:33)
[2018-08-05] MEDS: ceFAZolin 2 GM in SODIUM CHLORIDE 0.9% 100 ML IVPB SCH (21:33)
[2018-08-05] MEDS: SENNOSIDES-DOCUSATE SODIUM 1 EACH TAB PO SCH (21:33)
[2018-08-05] MEDS: traMADol 50 MG TAB PO SCH (21:34)
[2018-08-06] MEDS: traMADol 50 MG TAB PO SCH ×4 (00:17→19:13)
[2018-08-06] MEDS: ceFAZolin 2 GM in SODIUM CHLORIDE 0.9% 100 ML IVPB SCH (01:52)
[2018-08-06] MEDS: HYDROcodone/APAP 5-325MG 1 EACH TAB PO PRN ×2 (03:56→12:05)
--- NOTE | 2018-08-06 05:40 | P.PN ---
Progress Note - Text Progress Note Date: 08/06/18 82 yo female status post right total knee replacement. Patient received the adductor canal catheter. Ropivacaine 0.2% at 8 mls/hr. Patient was seen today at 5:39 AM. Patient was sitting in bed comfortably. VAS score of 0/10 no complaints overnight. Assessment and plan: patient will be sent home with the adductor canal pump. Adequate pain control.
[2018-08-06 08:16] LABS: Basophils % (A) 0 %; Eosinophils # (A) 0.1 k/uL (0-0.7); Eosinophils % (A) 1 %; HCT 40.6 % (34.0-46.0); HGB 12.8 gm/dL (11.4-16.0); Hypochromasia Slight; Lymphocytes % (A) 7 %; MCH 27.9 pg (25.0-35.0); MCHC 31.6 g/dL (31.0-37.0); MCV 88.3 fL (80.0-100.0); Mean Platelet Volume 7.5; Monocytes # (A) 0.9 k/uL (0-1.0); Monocytes % (A) 6 %; Neutrophils # (A) 12.6 k/uL (1.3-7.7); Neutrophils % (A) 84 %; Platelet Count 223 k/uL (150-450); RDW 15.8 % (11.5-15.5); WBC 15.1 k/uL (3.8-10.6)
[2018-08-06] MEDS: LACTATED RINGERS 1,000 ML IV SCH ×2 (08:35→12:04)
[2018-08-06] MEDS: LOSARTAN-HCTZ 50-12.5 MG 1 EACH TAB PO SCH ×2 (08:36→20:08)
[2018-08-06] MEDS: FERROUS SULFATE 325 MG TAB PO SCH (08:36)
[2018-08-06] MEDS: PANTOPRAZOLE 40 MG TABLET PO SCH (08:36)
[2018-08-06] MEDS: ENOXAPARIN 30 MG/0.3 ML SYRINGE SQ SCH ×2 (08:41→20:09)
[2018-08-06] MEDS: ESTRADIOL 0.5 MG TAB PO SCH (08:42)
[2018-08-06] MEDS: QUINIDINE SULFATE 300 MG PO SCH ×2 (08:43→17:17)
[2018-08-06] MEDS ORDERED: MULTIVITAMINS, THERA 1 EACH TAB PO SCH (12:00)
[2018-08-06] MEDS: SODIUM CHLORIDE 0.9% 1,000 ML IV SCH (12:04)
--- NOTE | 2018-08-06 13:36 | P.PN ---
Subjective Progress Note Date: 08/06/18 Principal diagnosis: Status post right total knee arthroplasty Patient is evaluated at bedside today, she is Present. She is resting comfortably. She's ambulating well, no significant increase in pain. She denies any chest pain or shortness of breath. Objective - Vital Signs Vital signs: Vital Signs Temp 98.0 F 08/06/18 07:00 Pulse 62 08/06/18 07:00 Resp 18 08/06/18 07:00 BP 150/74 08/06/18 07:00 Pulse Ox 95 08/06/18 07:00 Intake & Output 08/05/18 08/06/18 08/06/18 18:59 06:59 18:59 Intake Total 1751 1275 296 Output Total 40 Balance 1711 1275 296 Weight 91.626 kg Intake: IV 1751 Intake, IV Titration 575 Amount Sodium Chloride 0.9% 1, 475 000 ml @ 50 mls/hr IV . Q20H [facility]IAM Rx#:[id number] ceFAZolin 2 gm In Sodium 100 Chloride 0.9% 100 ml @ 100 mls/hr IVPB Q8H MARIAM Rx#:[id number] Oral 700 296 Output: Estimated Blood Loss 40 Other: Voiding Method Toilet # Voids 2 1 - Exam Right lower extremity: Incision is clean, dry, and intact. The exofin fusion tape is in good condition. There is minimal soft tissue swelling and ecchymosis surrounding the medial and lateral aspects of the incision. Calf is soft, no tenderness with palpation. Plantar flexion, dorsiflexion, EHL, FHL are intact. Sensory exam to light touch throughout the extremity is intact, dorsal pedis pulses 2+. - Labs CBC & Chem 7: 08/06/18 07:49 Labs: Abnormal Lab Results - Last 24 Hours (Table) 08/06/18 Range/Units 07:49 WBC 15.1 H (3.8-10.6) k/uL RDW 15.8 H (11.5-15.5) % Neutrophils # 12.6 H (1.3-7.7) k/uL Assessment and Plan Plan: Assessment: Postoperative day #1 status post right total knee arthroplasty Plan: Pain control, continue current medication GI and DVT prophylaxis, continue current medication Daily dressing changes/ice and elevate Encourage incentive spirometer Medical recommendations Discharge planning: Patient will likely be discharged home tomorrow Time with Patient: Less than 30
--- NOTE | 2018-08-06 16:18 | CONS ---
CONSULTATION DATE OF CONSULTATION: 08/06/2018 REASON FOR CONSULTATION: Medical management requested by Dr. Freeman. CONSULTATION: This is a pleasant 82-year-old patient of Dr. Sharma from [place]. Chronic stable medical conditions include hypertension, hyperlipidemia, peptic ulcer disease. Patient has undergone right total knee arthroplasty. Patient did walk to the door with the physical therapist. Pain is controlled. No nausea, vomiting. Did tolerate her breakfast. No chest pain or shortness of breath. Patient's family is present. REVIEW OF SYSTEMS: CONSTITUTIONAL: None. HEENT: None. RESPIRATORY: None. CARDIOVASCULAR: None. GASTROINTESTINAL: None. GENITOURINARY: None. MUSCULOSKELETAL: Arthritic pain in the joints. DERMATOLOGICAL: None. HEMATOLOGICAL: None. LYMPHATICS: None. PSYCHIATRY: None. NEUROLOGICAL: None. PAST MEDICAL HISTORY: 1. Hypertension. 2. Hyperlipidemia. 3. Osteoarthritis. 4. Kidney stones. 5. Peptic ulcer disease. PAST SURGICAL HISTORY: 1. Hysterectomy. 2. Lithotripsy. 3. Bilateral hip replacement. 4. Skin cancer removed. SOCIAL HISTORY: No smoking. No alcohol. . FAMILY HISTORY: Stroke and hypertension. HOME MEDICATIONS: 1. Hyzaar 50/12.5 one tablet b.i.d. 2. Lasix 20 mg daily. 3. Fish oil 1 tablet daily. 4. Quinidine 300 mg t.i.d. 5. Prilosec 20 mg with breakfast. 6. Multivitamin 1 tablet p.o. daily. 7. Iron 325 p.o. daily. 8. Estradiol 0.5 mg p.o. daily. 9. Lipitor 20 mg at bedtime. ALLERGIES: CODEINE and NSAIDS (no true allergy). PHYSICAL EXAMINATION: Temperature 98, pulse 62, respiration 18, blood pressure 150/74, pulse ox 95% on room air. GENERAL APPEARANCE: Well built; BMI 33.6. Sitting up in a chair, comfortable. EYES: Pupils equal. Conjunctivae normal. HEENT: External appearance of nose and ears normal. Oral cavity normal. NECK: JVD not raised. Mass not palpable. RESPIRATORY: Effort normal. LUNGS: Fair air entry. CARDIOVASCULAR: First and second sounds normal. No edema. ABDOMEN: Soft, non-tender. Liver and spleen not palpable. LYMPHATIC: No lymph node palpable in neck or axillae. PSYCHIATRY: Alert and oriented x3. Mood and affect normal. NEUROLOGICAL: Pupils equal. Cranial nerves grossly intact. Power and sensation grossly intact. MUSCULOSKELETAL: Evidence of osteoarthritis, especially in the hands. Dressing over the right knee. INVESTIGATIONS: White count 15.1, hemoglobin 12.8. ASSESSMENT: 1. Right total knee arthroplasty. 2. Primary osteoarthritis in multiple joints. 3. Peptic ulcer disease; symptoms controlled on Prilosec. 4. Essential hypertension. 5. Hyperlipidemia. 6. Obesity; body mass index 33.6. 7. Leukocytosis, reactive from surgery. Clinically no evidence of infection. PLAN: Home medications are resumed. Pain is well controlled. Patient is on Lovenox for DVT prophylaxis per Dr. Freeman. Care was discussed with the patient. Questions were answered. Will discontinue the IV fluids. Thank you, Dr. Freeman. MMODL / IJN: [id number] /
[2018-08-06] MEDS: HYDROcodone/APAP 10-325MG 1 EACH TAB PO PRN (17:22)
[2018-08-06] MEDS: SENNOSIDES-DOCUSATE SODIUM 1 EACH TAB PO SCH (20:08)
[2018-08-06] MEDS ORDERED: ATORVASTATIN 20 MG TAB PO SCH (21:00)
[2018-08-07] MEDS: traMADol 50 MG TAB PO SCH ×2 (06:10→09:22)
[2018-08-07] MEDS: QUINIDINE SULFATE 300 MG PO SCH ×2 (06:10→09:20)
[2018-08-07] MEDS: PANTOPRAZOLE 40 MG TABLET PO SCH (06:49)
[2018-08-07] MEDS: HYDROcodone/APAP 10-325MG 1 EACH TAB PO PRN (06:49)
[2018-08-07 07:08] VITALS: BP 175/83; PULSE 68; RESP 18; TEMP 99.5
[2018-08-07] MEDS: ENOXAPARIN 30 MG/0.3 ML SYRINGE SQ SCH (09:21)
[2018-08-07] MEDS: FERROUS SULFATE 325 MG TAB PO SCH (09:22)
[2018-08-07] MEDS: LOSARTAN-HCTZ 50-12.5 MG 1 EACH TAB PO SCH (09:22)
[2018-08-07] MEDS: ESTRADIOL 0.5 MG TAB PO SCH (09:23)
[2018-08-07] MEDS: LACTATED RINGERS 1,000 ML IV SCH (09:27)
--- NOTE | 2018-08-07 10:27 | P.PN ---
Subjective Progress Note Date: 08/07/18 Principal diagnosis: Status post right total knee arthroplasty Patient is evaluated at bedside today, she is Present. She is resting comfortably. She's ambulating well, no significant increase in pain. She denies any chest pain or shortness of breath. Objective - Vital Signs Vital signs: Vital Signs Temp 99.5 F 08/07/18 06:50 Pulse 68 08/07/18 06:50 Resp 18 08/07/18 06:50 BP 175/83 08/07/18 06:50 Pulse Ox 94 L 08/07/18 06:50 Intake & Output 08/06/18 08/07/18 08/07/18 18:59 06:59 18:59 Intake Total 516 2330 Balance 516 2330 Weight 91.626 kg Intake: Intake, IV Titration 900 Amount Sodium Chloride 0.9% 1, 800 000 ml @ 50 mls/hr IV . Q20H [facility] Rx#:[id number] ceFAZolin 2 gm In Sodium 100 Chloride 0.9% 100 ml @ 100 mls/hr IVPB Q8H [facility] Rx#:[id number] Oral 516 1430 Other: Voiding Method Toilet # Voids 1 1 - Exam Right lower extremity: Incision is clean, dry, and intact. The exofin fusion tape is in good condition. There is minimal soft tissue swelling and ecchymosis surrounding the medial and lateral aspects of the incision. Calf is soft, no tenderness with palpation. Plantar flexion, dorsiflexion, EHL, FHL are intact. Sensory exam to light touch throughout the extremity is intact, dorsal pedis pulses 2+. - Labs CBC & Chem 7: 08/06/18 07:49 Assessment and Plan Plan: Assessment: Postoperative day #2 status post right total knee arthroplasty Plan: Pain control, plan for discharge on [place] and tramadol GI and DVT prophylaxis, plan for discharge on Lovenox 40 mg subcu once a day Daily dressing changes/ice and elevate Encourage incentive spirometer Medical recommendations Discharge planning: Patient will be discharged home today Time with Patient: Less than 30
--- NOTE | 2018-08-07 10:35 | P.DS ---
Providers Date of admission: 08/05/2017 Expected date of discharge: 08/07/18 Attending physician: Itz Freeman Consults: 08/05/18 14:58 Consult Physician Routine Consulting Provider: Oscar Cintron Consult Reason/Comments: Medical management Do you want consulting provider notified?: Yes [facility]: Date of admission: 08/05/2018 Date of discharge: 08/07/2018 Admission diagnosis: Status post right total knee arthroplasty Discharge diagnosis: Same Attending physician: Dr. Freeman Surgical procedures: Right total knee arthroplasty Brief history: Patient is a 82-year-old female with a history of progressive primary right knee osteoarthritis. At this point patient has failed conservative treatment measures and has opted to proceed with a elective right total knee arthroplasty. Hospital course: Details of patient's surgery can be found in operative report. Patient tolerated the procedure well and was subsequently transported to orthopedic floor. Patient's orthopeidc and medical care was provided daily. Patient had daily laboratory tests performed for evaluation of overall blood counts. Patient had daily physical therapy to include strengthening range of motion as well as education with walker ambulation. Patient had daily CPM usage as part of their physical therapy program. Patient was treated with Lovenox for their postoperative DVT prophylaxis during their inpatient stay. Patient was noted to have a relatively uneventful postoperative course. Patient reported satisfactory pain control with oral pain medications by postoperative day 0. Patient showed satisfactory progress with physical therapy. Patient moved steadily through the program and had no difficulty meeting the goals by postoperative day 2 . Given patient's otherwise satisfactory course and having met physical therapy goals, plan is to discharge patient home on postoperative day 2. Discharge condition/disposition: Patient will be discharged home in stable condition. Discharge medications: Instructions are given on resumption of patient's normal daily medications per primary care recommendation, in addition patient will be prescribed [place] 7.5 mg/325 mg, tramadol 50 mg, Colace 100 mg, Lovenox 40 mg. Discharge instructions: 1. Wound care and infection precautions, keep incision dry and covered while showering, no lotions, creams, moisturizers. No soaking, tubs, pools, hottubs. Do not scrub over the incision. 2. Weight-bear as tolerated with walker / cane until follow-up. 3. Ice and elevate when necessary. Do not exceed 20 minutes per hour with ice pack. 4. Utilize compression sleeve until seen at first follow up appointment. 5. Visiting nursing care. 6. Home physical therapy including home CPM. 7. Pain meds and anticoagulants per prescription. 8. Pain medication has potential to cause constipation. Increase oral fluid and fiber intake. Contact primary care provider if you have not had a bowel movement within 48 hours after discharge 9. No anti-inflammatory medication until discussed at first post operative visit, this including Motrin, Aleve, Mobic, Diclofenac. 10. Follow up in office at 2 weeks postop with Joe Tidwell PA-C 11. Follow up with your primary care doctor 7-10 days after discharge. 12. Contact [facility] with any questions, . Procedures: Right total knee arthroplasty Patient Condition at Discharge: Good Plan - Discharge Summary Discharge Rx Participant: No New Discharge Prescriptions: New Docusate [Colace] 100 mg PO DAILY #30 capsule Enoxaparin [Lovenox] 40 mg SQ DAILY #12 syringe HYDROcodone/APAP 7.5-325MG [[place] 7.5] 1 - 2 each PO Q6HR PRN #56 tab PRN Reason: Pain traMADol HCl [Ultram] 50 mg PO Q6H PRN #28 tab PRN Reason: Pain No Action Multivitamins, Thera [Multivitamin (formulary)] 1 tab PO DAILY Estradiol 0.5 mg PO DAILY Atorvastatin [Lipitor] 20 mg PO HS quiNIDine SULFATE 300 mg PO TID Omeprazole [PriLOSEC] 20 mg PO AC-BRKFST Furosemide [Lasix] 20 mg PO DAILY Acetaminophen [Tylenol Extra Strength] 500 mg PO Q6HR PRN PRN Reason: Pain Losartan-Hctz 50-12.5 mg [Hyzaar 50-12.5] 1 tab PO BID Ferrous Sulfate [Feosol] 325 mg PO DAILY [place]-3 Fatty Acids/Fish Oil [Fish Oil 1,000 mg Softgel] 1 each PO DAILY Discharge Medication List Atorvastatin [Lipitor] 20 mg PO HS 02/11/17 [History] Estradiol 0.5 mg PO DAILY 02/11/17 [History] Multivitamins, Thera [Multivitamin (formulary)] 1 tab PO DAILY 02/11/17 [History ] quiNIDine SULFATE 300 mg PO TID 02/11/17 [History] Acetaminophen [Tylenol Extra Strength] 500 mg PO Q6HR PRN 05/25/17 [History] Furosemide [Lasix] 20 mg PO DAILY 05/25/17 [History] Losartan-Hctz 50-12.5 mg [Hyzaar 50-12.5] 1 tab PO BID 05/25/17 [History] Omeprazole [PriLOSEC] 20 mg PO AC-BRKFST 05/25/17 [History] Ferrous Sulfate [Feosol] 325 mg PO DAILY 07/24/18 [History] [place]-3 Fatty Acids/Fish Oil [Fish Oil 1,000 mg Softgel] 1 each PO DAILY [History] Docusate [Colace] 100 mg PO DAILY #30 capsule 08/07/18 [Rx] Enoxaparin [Lovenox] 40 mg SQ DAILY #12 syringe 08/07/18 [Rx] HYDROcodone/APAP 7.5-325MG [[place] 7.5] 1 - 2 each PO Q6HR PRN #56 tab 08/07/18 [ Rx] traMADol HCl [Ultram] 50 mg PO Q6H PRN #28 tab 08/07/18 [Rx] Follow up Appointment(s)/Referral(s): [facility], [NON-STAFF] - Iker Tidwell PAC [PHYSICIAN CAR PICK UP DRIVER] - 08/21/18 2:10 pm Gael Sharma MD [Primary Care Provider] - 08/13/18 9:00 am Activity/Diet/Wound Care/Special Instructions: Orthopedic Discharge Instructions: 1. Wound care and infection precautions, keep incision dry and covered while showering, no lotions, creams, moisturizers. No soaking, pools, hot tubs. Do not scrub over incision. 2. Weight-bear as tolerated with walker / cane until follow-up. 3. Ice and elevate when necessary. Do not exceed 20 minutes per hour with ice pack. 4. Utilize compression sleeve until seen at first follow up appointment. 5. Pain meds and anticoagulants per prescription. 6. Pain medication has potential to cause constipation. Increase oral fluid and fiber intake. Contact primary care provider if you have not had a bowel movement within 48 hours after discharge. 7. No anti-inflammatory medication until discussed at first post operative visit, this including Motrin, Aleve, Mobic, Diclofenac. 8. Follow up in office at 2 weeks postop with Joe Tidwell PA-C 9. Follow up with your primary care doctor 7-10 days after discharge. 10. Contact [facility] with any questions, . Discharge Disposition: HOME WITH HOME HEALTH SERVICES
--- NOTE | 2018-08-07 11:24 | P.PN ---
Progress Note - Text Anesthesia POD 2. Patient is status post right TKR under spinal anesthesia with a right adductor canal catheter placed for postoperative pain relief. With ropivacaine 0.2% running at 8 cc's per hour, the patient's VAS is (2, 4). Catheter site is clean dry and intact.
== END 2018-08-07 11:44 | disposition home health service (06) ==
LOC: OR 11:09 → 4SSUR 20:09 → OR 08-07 11:44
PROVIDERS: ATTEND Orthopaedic Surgery
DX: M17.11 Unilateral primary osteoarthritis, right knee (principal); M23.91 Unspecified internal derangement of right knee; I10 Essential (primary) hypertension; E78.5 Hyperlipidemia, unspecified; K21.0 Gastro-esophageal reflux disease with esophagitis; K27.9 Peptic ulcer, site unspecified, unspecified as acute or chronic, without hemorrhage or perforation; E66.9 Obesity, unspecified; Z68.33 Body mass index [BMI] 33.0-33.9, adult; D72.829 Elevated white blood cell count, unspecified; E55.9 Vitamin D deficiency, unspecified; K59.09 Other constipation; K64.9 Unspecified hemorrhoids; M54.2 Cervicalgia; R59.1 Generalized enlarged lymph nodes; R63.2 Polyphagia; Z96.643 Presence of artificial hip joint, bilateral; Z79.2 Long term (current) use of antibiotics; Z79.890 Hormone replacement therapy; Z79.899 Other long term (current) drug therapy; Z88.6 Allergy status to analgesic agent; Z88.5 Allergy status to narcotic agent; Z87.19 Personal history of other diseases of the digestive system; Z87.440 Personal history of urinary (tract) infections; Z87.442 Personal history of urinary calculi; Z85.828 Personal history of other malignant neoplasm of skin
CPT/HCPCS: 27447; 64448; 97116 ×2; 97161; 85025; 88300; 73560; C1776; C1713; C1772; J2250; J0171; J0360; J0690 ×5; J2405; J3010; J1885; J1650 ×2; J1100; J2795; J2704; J0735

== ENCOUNTER 2019-04-30 10:27 | Emergency (ER) | payer MEDICARE ==
[2019-04-30 10:32] VITALS: BP 191/73; PULSE 79; RESP 18; TEMP 98.7
[2019-04-30 11:35] LABS: Basophils % (A) 1 %; Eosinophils # (A) 0.1 k/uL (0-0.7); Eosinophils % (A) 1 %; HCT 42.1 % (34.0-46.0); HGB 14.4 gm/dL (11.4-16.0); Lymphocytes % (A) 11 %; MCH 29.6 pg (25.0-35.0); MCHC 34.1 g/dL (31.0-37.0); MCV 86.7 fL (80.0-100.0); Mean Platelet Volume 6.7; Monocytes # (A) 0.5 k/uL (0-1.0); Monocytes % (A) 5 %; Neutrophils # (A) 7.6 k/uL (1.3-7.7); Neutrophils % (A) 80 %; Platelet Count 219 k/uL (150-450); RBC 4.86 m/uL (3.80-5.40); WBC 9.5 k/uL (3.8-10.6)
[2019-04-30 11:44] LABS: Prothrombin Time 10.8 sec (9.0-12.0)
[2019-04-30 11:45] LABS: Partial Thromboplastin Time 37.5 sec (22.0-30.0)
[2019-04-30 11:48] LABS: Albumin 4.1 g/dL (3.5-5.0); Calcium 9.7 mg/dL (8.4-10.2); Magnesium 1.9 mg/dL (1.6-2.3); Potassium 4.1 mmol/L (3.5-5.1); Total Bilirubin 0.6 mg/dL (0.2-1.3); Total Protein 6.7 g/dL (6.3-8.2)
--- NOTE | 2019-04-30 12:18 | ED ---
General Adult HPI - General Chief complaint: Dizziness Stated complaint: Abnormal labs Time Seen by Provider: 04/30/19 10:43 Source: patient Mode of arrival: wheelchair - History of Present Illness Initial comments: Dictation was produced using [employer] dictation software. please excuse any grammatical, word or spelling errors. Chief Complaint: 83-year-old female sent in by PCP for cardiac workup. History of Present Illness: 83-year-old female she has past medical history of hypertension. She presents today with instruction from primary care physician to be evaluated for cardiac process. Patient has been having sharp left shoulder pain since yesterday. She called her primary care physician earlier today and was told to come to the emergency department for cardiac workup. Patient also had some dizziness this morning. She attributes this to taking her meds or having breakfast today. Patient denies any chest pain at this time. Denies any focal neurologic deficits. She points to a portion of her left trapezius that is causing her symptoms. She states worse with palpation. Denies any exacerbation with movement. The ROS documented in this emergency department record has been reviewed and confirmed by me. Those systems with pertinent positive or negative responses have been documented in the HPI. All other systems are other negative and/or noncontributory. PHYSICAL EXAM: General Impression: Alert and oriented x3, not in acute distress HEENT: Normocephalic atraumatic, extra-ocular movements intact, pupils equal and reactive to light bilaterally, mucous membranes moist. Cardiovascular: Heart regular rate and rhythm, S1&S2 audible, no murmurs, rubs or gallops Chest: Lungs clear to auscultation bilaterally, no rhonchi, no wheeze, no rales Abdomen: Bowel sounds present, abdomen soft, non-tender, non-distended, no or ganomegaly Musculoskeletal: Pulses present and equal in all extremities, no peripheral edema, point tenderness over the mid trapezius Motor: no focal deficits noted Neurological: CN II-XII grossly intact, no focal motor or sensory deficits noted Skin: Intact with no visualized rashes Psych: Normal affect and mood ED course: 83-year-old female instructed by her PCP to come to the emergency room for further cardiac workup. All signs upon arrival are within acceptable limits. Abdomen evaluation obtained. CBC, coag panel, metabolic panel is unremarkable. First cardiac enzymes negative. Chest x-ray shoulder x-ray shows no acute processes. Clinical presentation is likely from musculoskeletal trapezius pain given that patient's symptoms are reproducible with palpation to the left trapezius. Discussed with patient that in order to reduce her risk of work up for acute coronary syndrome we should at least get to cardiac troponins. She did not want to wait for the second troponin. Return parameters discussed. Patient told to return to the emergency department if she has any worsening symptoms. Otherwise she is told to follow up with her regular care physician upon discharge. Patient understandable agreeable to plan. Patient given a Lidoderm patch for her left trapezius. EKG interpretation: Ventricular rate 73, normal sinus rhythm, CT interval 152, care is 86, QTC 431. No CT prolongation, no QTC prolongation, no ST or T-wave changes noted. Overall, this EKG is unremarkable - Related Data Home Medications Medication Instructions Recorded Confirmed Atorvastatin [Lipitor] 20 mg PO HS 02/11/17 04/30/19 Estradiol 0.5 mg PO DAILY 02/11/17 04/30/19 Multivitamins, Thera [Multivitamin 1 tab PO DAILY 02/11/17 04/30/19 (formulary)] quiNIDine SULFATE 300 mg PO DAILY 02/11/17 04/30/19 Furosemide [Lasix] 20 mg PO DAILY 05/25/17 04/30/19 [place]-3 Fatty Acids/Fish Oil [Fish 1 cap PO DAILY 07/24/18 04/30/19 Oil 1,000 mg Softgel] Losartan/Hydrochlorothiazide 0.5 tab PO BID 04/30/19 04/30/19 [Losartan-Hctz 100-25 mg Tab] Allergies Allergy/AdvReac Type Severity Reaction Status Date / Time NSAIDS (Non-Steroidal AdvReac Unknown States Hx Verified 04/30/19 10:40 Anti-Inflamma of Bleeding Ulcer (no nsaids) codeine AdvReac Nausea & Verified 04/30/19 10:40 Vomiting Review of Systems ROS Statement: Those systems with pertinent positive or pertinent negative responses have been documented in the HPI. ROS Other: All systems not noted in ROS Statement are negative. Past Medical History Past Medical History: Hypertension Additional Past Medical History / Comment(s): kidney stones History of Any Multi-Drug Resistant Organisms: None Reported Past Surgical History: Hysterectomy Additional Past Surgical History / Comment(s): lithotripsy Past Anesthesia/Blood Transfusion Reactions: Postoperative Nausea & Vomiting (PONV) Past Psychological History: No Psychological Hx Reported Smoking Status: Never smoker Past Alcohol Use History: None Reported Past Drug Use History: None Reported - Past Family History Father Family Medical History: CVA/TIA, Hypertension Mother Family Medical History: Hypertension Course Vital Signs 04/30/19 10:29 Temperature 98.7 F Pulse Rate 79 Respiratory 18 Rate Blood Pressure 191/73 O2 Sat by Pulse 94 L Oximetry Medical Decision Making - Lab Data Result diagrams: 04/30/19 11:16 04/30/19 11:16 Lab Results 04/30/19 04/30/19 04/30/19 Range/Units 11:16 11:16 11:16 WBC 9.5 (3.8-10.6) k/uL RBC 4.86 (3.80-5.40) m/uL Hgb 14.4 (11.4-16.0) gm/dL Hct 42.1 (34.0-46.0) % MCV 86.7 (80.0-100.0) fL MCH 29.6 (25.0-35.0) pg MCHC 34.1 (31.0-37.0) g/dL RDW 14.0 (11.5-15.5) % Plt Count 219 (150-450) k/uL Neutrophils % 80 % Lymphocytes % 11 % Monocytes % 5 % Eosinophils % 1 % Basophils % 1 % Neutrophils # 7.6 (1.3-7.7) k/uL Lymphocytes # 1.0 (1.0-4.8) k/uL Monocytes # 0.5 (0-1.0) k/uL Eosinophils # 0.1 (0-0.7) k/uL Basophils # 0.0 (0-0.2) k/uL PT 10.8 (9.0-12.0) sec INR 1.0 (<1.2) APTT 37.5 H (22.0-30.0) sec Sodium 141 (137-145) mmol/L Potassium 4.1 (3.5-5.1) mmol/L Chloride 108 H (98-107) mmol/L Carbon Dioxide 25 (22-30) mmol/L Anion Gap 8 mmol/L BUN 17 (7-17) mg/dL Creatinine 0.77 (0.52-1.04) mg/dL Est GFR (CKD-EPI)AfAm 84 (>60 ml/min/1.73 sqM) Est GFR (CKD-EPI)NonAf 73 (>60 ml/min/1.73 sqM) Glucose 99 (74-99) mg/dL Calcium 9.7 (8.4-10.2) mg/dL Magnesium 1.9 (1.6-2.3) mg/dL Total Bilirubin 0.6 (0.2-1.3) mg/dL AST 29 (14-36) U/L ALT 25 (9-52) U/L Alkaline Phosphatase 86 (38-126) U/L Troponin I (0.000-0.034) ng/mL Total Protein 6.7 (6.3-8.2) g/dL Albumin 4.1 (3.5-5.0) g/dL Lipase 108 (23-300) U/L 04/30/19 Range/Units 11:16 WBC (3.8-10.6) k/uL RBC (3.80-5.40) m/uL Hgb (11.4-16.0) gm/dL Hct (34.0-46.0) % MCV (80.0-100.0) fL MCH (25.0-35.0) pg MCHC (31.0-37.0) g/dL RDW (11.5-15.5) % Plt Count (150-450) k/uL Neutrophils % % Lymphocytes % % Monocytes % % Eosinophils % % Basophils % % Neutrophils # (1.3-7.7) k/uL Lymphocytes # (1.0-4.8) k/uL Monocytes # (0-1.0) k/uL Eosinophils # (0-0.7) k/uL Basophils # (0-0.2) k/uL PT (9.0-12.0) sec INR (<1.2) APTT (22.0-30.0) sec Sodium (137-145) mmol/L Potassium (3.5-5.1) mmol/L Chloride (98-107) mmol/L Carbon Dioxide (22-30) mmol/L Anion Gap mmol/L BUN (7-17) mg/dL Creatinine (0.52-1.04) mg/dL Est GFR (CKD-EPI)AfAm (>60 ml/min/1.73 sqM) Est GFR (CKD-EPI)NonAf (>60 ml/min/1.73 sqM) Glucose (74-99) mg/dL Calcium (8.4-10.2) mg/dL Magnesium (1.6-2.3) mg/dL Total Bilirubin (0.2-1.3) mg/dL AST (14-36) U/L ALT (9-52) U/L Alkaline Phosphatase (38-126) U/L Troponin I <0.012 (0.000-0.034) ng/mL Total Protein (6.3-8.2) g/dL Albumin (3.5-5.0) g/dL Lipase (23-300) U/L Disposition Clinical Impression: Strain of left trapezius muscle Disposition: HOME SELF-CARE Condition: Good Instructions (If sedation given, give patient instructions): Muscle Strain (DC) Is patient prescribed a controlled substance at d/c from ED?: No Referrals: Gael Sharma MD [Primary Care Provider] - 1-2 days Time of Disposition: 13:02
--- NOTE | 2019-04-30 12:48 | XR ---
EXAMINATION TYPE: XR chest 2V DATE OF EXAM: 04/30/2019 COMPARISON: NONE HISTORY: Chest pain. TECHNIQUE: Frontal and lateral views of the chest are obtained. FINDINGS: There is some chronic parenchymal change without suspicious focal air space opacity, pleur al effusion, or pneumothorax seen. Slightly elevated right hemidiaphragm. The cardiac silhouette siz e is within normal limits with atherosclerotic change in aortic knob. Multilevel spurring in thoracic spine. Advanced degenerative change bilateral glenohumeral joints. IMPRESSION: Chronic changes without acute pulmonary process.
--- NOTE | 2019-04-30 12:50 | XR ---
EXAMINATION TYPE: XR shoulder complete LT DATE OF EXAM: 04/30/2019 CLINICAL HISTORY: Left shoulder pain. TECHNIQUE: Three views of the left shoulder are obtained. COMPARISON: None. FINDINGS: There is no acute fracture/dislocation evident in the left shoulder. Moderate to severe na rrowing of acromioclavicular joint with [id number] spurring. Some spurring from the inferior a spect distal acromion. Moderate narrowing glenohumeral joint with medial marginal spurring. Suboptima l evaluation in external rotated view not performed correctly. The visualized ribs are intact and unr emarkable. IMPRESSION: As above.
[2019-04-30] MEDS ORDERED: ONDANSETRON 4 MG/2 ML VIAL IVP STA (12:52)
[2019-04-30] MEDS ORDERED: LIDOCAINE 5% PATCH TOPICAL STA (12:58)
== END 2019-04-30 13:46 | disposition home or self-care (01) ==
LOC: EC 10:27
DX: S46.812A Strain of other muscles, fascia and tendons at shoulder and upper arm level, left arm, initial encounter (principal); R42 Dizziness and giddiness; I10 Essential (primary) hypertension; Z88.5 Allergy status to narcotic agent; Z88.6 Allergy status to analgesic agent; Z79.899 Other long term (current) drug therapy; Z53.8 Procedure and treatment not carried out for other reasons; X58.XXXA Exposure to other specified factors, initial encounter
CPT/HCPCS: 36415; 71046; 80053; 83690; 83735; 84484; 85025; 85610; 85730; 93005; 99284

== ENCOUNTER → 2021-02-21 | Outpatient (CLI) | payer MEDICARE ==
--- NOTE | 2021-02-21 18:45 | US ---
EXAMINATION TYPE: US kidneys/renal and bladder DATE OF EXAM: 02/21/2021 COMPARISON: CT 02/11/2017 CLINICAL HISTORY: 85-year-old female Z87.442 HX OF NEPHROLITHIASIS. EXAM MEASUREMENTS: Right Kidney: 11.8 x 5.7 x 6.4 cm Left Kidney: 11.3 x 5.9 x 5.3 cm Right Kidney: No hydronephrosis. Cyst lower pole measuring 1.3 x 1.0 x 1.2 cm. No clear hydronephros is. There is renal cortical thinning. Left Kidney: No hydronephrosis or masses seen. No clear hydronephrosis. There is renal cortical thinn ing. Bladder: Partially distended bladder shows no gross abnormality. Bilateral Jets seen: Yes IMPRESSION: Renal cortical thinning may reflect underlying chronic medical renal disease. No evident hydronephros is.
== END | disposition home or self-care (01) ==
LOC: RADUSWWP 10:06
PROVIDERS: ATTEND Internal Medicine Nephrology
DX: N28.89 Other specified disorders of kidney and ureter (principal); N28.1 Cyst of kidney, acquired; Z87.442 Personal history of urinary calculi
CPT/HCPCS: 76770

== ENCOUNTER 2021-03-30 12:21 | Emergency (ER) | payer MEDICARE ==
[2021-03-30 12:44] VITALS: TEMP 98.3
[2021-03-30 13:23] VITALS: RESP 18
[2021-03-30] MEDS ORDERED: SODIUM CHLORIDE 0.9% 500 ML 500 ML IV STA (13:47)
--- NOTE | 2021-03-30 14:09 | XR ---
EXAMINATION TYPE: XR chest 2V DATE OF EXAM: 03/30/2021 COMPARISON: 04/30/2019 HISTORY: Shortness of breath TECHNIQUE: Frontal and lateral views of the chest are obtained. FINDINGS: Scattered senescent parenchymal changes noted. Hyperinflation compatible with COPD. No evidence for infiltrate. No evidence for atelectasis. Heart size is stable. Mediastinal structures are stable and grossly unremarkable. No evidence for hilar prominence. Degenerative changes dorsal spine. IMPRESSION: 1. No evidence for acute pulmonary disease.
[2021-03-30 14:46] LABS: INR 1.1 (<1.2); Partial Thromboplastin Time 34.9 sec (22.0-30.0); Prothrombin Time 11.4 sec (9.0-12.0)
[2021-03-30 14:49] LABS: Albumin 4.1 g/dL (3.5-5.0); Calcium 9.5 mg/dL (8.4-10.2); Phosphorus 2.8 mg/dL (2.5-4.5); Potassium 3.8 mmol/L (3.5-5.1); Total Bilirubin 0.8 mg/dL (0.2-1.3); Total Protein 6.7 g/dL (6.3-8.2)
[2021-03-30 14:56] LABS: MCH 31.6 pg (25.0-35.0); MCHC 34.7 g/dL (31.0-37.0); MCV 90.9 fL (80.0-100.0); Mean Platelet Volume 8.7; Platelet Count 157 k/uL (150-450); RBC 4.74 m/uL (3.80-5.40); RDW 14.7 % (11.5-15.5); WBC 6.9 k/uL (3.8-10.6)
[2021-03-30 15:05] LABS: Appearance,Urine Clear (Clear); Bilirubin,Urine Negative (Negative); Blood,Urine Negative (Negative); Color,Urine Yellow; Glucose,Urine (UA) Negative (Negative); Ketones,Urine 1+ (Negative); Leukocyte Esterase,Urine Negative (Negative); Nitrite,Urine Negative (Negative); PH, Urine 6.5 (5.0-8.0); Protein,Urine Negative (Negative); Specific Gravity,Urine 1.014 (1.001-1.035); Urobilinogen,Urine <2.0 mg/dL (<2.0)
[2021-03-30 15:49] LABS: Band Neutrophils % 6 %; Monocytes # (M) 0.83 k/uL (0-1.0); Neutrophils % (M) 69 %; Nucleated Red Blood Cells 0 /100 WBC (0-0); Total Cells Counted 100
[2021-03-30 15:50] LABS: Reactive Lymphocytes Present
--- NOTE | 2021-03-30 16:24 | ED ---
Recheck HPI - General Chief Complaint: Recheck/Abnormal Lab/Rx Stated Complaint: weakness, poss abn labs Time Seen by Provider: 03/30/21 13:15 Source: patient Mode of arrival: ambulatory Limitations: no limitations - History of Present Illness Initial Comments: Patient is an 85-year-old female with history of hypertension, presenting to the emergency Department with complaints of generalized fatigue, some mild shortness of breath with exertion over the last few days. She states she's had low hemoglobin in the past and she feels similar to this and has concerns that it slowly again. She states this happened about 6 or 7 years ago. She denies any chest pain, no nausea or vomiting, no abdominal pain. She denies any recent fevers or chills. When she is up and around her house she feels short of breath quicker than normal. She denies history of asthma, COPD, she is a nonsmoker but has been around her who smoked for years. She denies any changes in her medication other than taking Tylenol for arthritis. She denies any abdominal p ain, no dysuria, no dark stools. She has no further complaints. Her vital signs are stable upon arrival. - Related Data Home Medications Medication Instructions Recorded Confirmed Atorvastatin [Lipitor] 20 mg PO HS 02/11/17 03/30/21 Estradiol 0.5 mg PO DAILY 02/11/17 03/30/21 Multivitamins, Thera [Multivitamin 1 tab PO DAILY 02/11/17 03/30/21 (formulary)] quiNIDine sulfate [quiNIDine 300 mg PO DAILY 02/11/17 03/30/21 SULFATE] Furosemide [Lasix] 20 mg PO DAILY 05/25/17 03/30/21 Losartan/Hydrochlorothiazide 1 tab PO DAILY 04/30/19 03/30/21 [Losartan-Hctz 100-25 mg Tab] Ascorbic Acid [Vitamin C] 1,000 mg PO DAILY 03/30/21 03/30/21 Biotin 10,000 mcg PO DAILY 03/30/21 03/30/21 Cholecalciferol [Vitamin D3 (25 50 mcg PO DAILY 03/30/21 03/30/21 Mcg = 1000 Iu)] Magnesium 250 mg PO DAILY 03/30/21 03/30/21 Omeprazole [PriLOSEC] 20 mg PO DAILY 03/30/21 03/30/21 Allergies Allergy/AdvReac Type Severity Reaction Status Date / Time NSAIDS (Non-Steroidal AdvReac Unknown States Hx Verified 03/30/21 15:31 Anti-Inflamma of Bleeding Ulcer (no nsaids) codeine AdvReac Nausea & Verified 03/30/21 15:31 Vomiting Review of Systems ROS Statement: Those systems with pertinent positive or pertinent negative responses have been documented in the HPI. ROS Other: All systems not noted in ROS Statement are negative. Past Medical History Past Medical History: Hypertension Additional Past Medical History / Comment(s): kidney stones, ulcers History of Any Multi-Drug Resistant Organisms: None Reported Past Surgical History: Hysterectomy Additional Past Surgical History / Comment(s): lithotripsy Past Anesthesia/Blood Transfusion Reactions: Postoperative Nausea & Vomiting (PONV) Past Psychological History: No Psychological Hx Reported Smoking Status: Never smoker Past Alcohol Use History: None Reported Past Drug Use History: None Reported - Past Family History Father Family Medical History: CVA/TIA, Hypertension Mother Family Medical History: Hypertension General Exam - General Exam Comments Initial Comments: GENERAL: Patient is well-developed and well-nourished. Patient is nontoxic and in no acute distress. HEAD: Atraumatic, normocephalic. EYES: Pupils equal round and reactive to light, extraocular movements intact, sclera anicteric, conjunctiva are normal. Eyelids were unremarkable. ENT: TMs normal, nares patent, oropharynx clear without exudates. Moist mucous membranes. NECK: Normal range of motion, supple without lymphadenopathy or JVD. LUNGS: Unlabored respirations. Breath sounds clear to auscultation bilaterally and equal. No wheezes rales or rhonchi. HEART: Regular rate and rhythm without murmurs, rubs or gallops. ABDOMEN: Soft, nontender, normoactive bowel sounds. No guarding, no rebound. No masses appreciated. : Deferred MUSCULOSKELETAL: Normal extremities with adequate strength and normal range of motion, no pitting or edema. No clubbing or cyanosis. NEUROLOGICAL: Patient is alert and oriented x 3. Motor and sensory are also intact. Cranial nerves II through XII grossly intact. Symmetrical smile. Normal speech, normal gait. PSYCH: Normal mood, normal affect. SKIN: Warm, Dry, normal turgor, no rashes or lesions noted. Limitations: no limitations Course Vital Signs 03/30/21 03/30/21 03/30/21 12:40 13:14 15:39 Temperature 98.3 F Pulse Rate 101 H 78 Pulse Rate [ 98 Bilateral Sitting Radial] Respiratory 20 18 18 Rate Blood Pressure 162/81 O2 Sat by Pulse 95 98 Oximetry Medical Decision Making - Medical Decision Making Patient is an 85-year-old female history of hypertension here for generalized fatigue, some mild shortness of breath with exertion over the past few days. She had concern for low hemoglobin as she had this in the past. No fevers, her vitals are stable, no chest pain. Her EKG showed no acute process. Chest x-ray shows some mild COPD but otherwise no abnormal process. Patient's labs are stable including a normal white count, hemoglobin is 15.0 troponin is normal, BNP is 150, urine shows 1+ ketones, no signs of infection. Patient was given some fluids here today, has remained stable the ER. I discussed with her and her daughter at this could be related to some mild dehydration. I'll COPD may also play a role and how she is feeling. I recommended following up with her primary care physician. She is agreeable to this plan of care and is stable for discharge. Return parameters were discussed with her and her daughter and they both verbalized understanding. Case discussed with Dr. Dominguez. - Lab Data Result diagrams: 03/30/21 14:25 03/30/21 14:25 Lab Results 03/30/21 03/30/21 03/30/21 Range/Units 14:25 14:25 14:25 WBC 6.9 (3.8-10.6) k/uL RBC 4.74 (3.80-5.40) m/uL Hgb 15.0 (11.4-16.0) gm/dL Hct 43.0 (34.0-46.0) % MCV 90.9 (80.0-100.0) fL MCH 31.6 (25.0-35.0) pg MCHC 34.7 (31.0-37.0) g/dL RDW 14.7 (11.5-15.5) % Plt Count 157 (150-450) k/uL MPV 8.7 Neutrophils % Not Reportable Neutrophils % (Manual) 69 % Band Neuts % (Manual) 6 % Lymphocytes % Not Reportable Lymphocytes % (Manual) 13 % Monocytes % Not Reportable Monocytes % (Manual) 12 % Eosinophils % Not Reportable Basophils % Not Reportable Neutrophils # Not Reportable Neutrophils # (Manual) 5.10 (1.3-7.7) k/uL Lymphocytes # Not Reportable Lymphocytes # (Manual) 0.90 L (1.0-4.8) k/uL Monocytes # Not Reportable Monocytes # (Manual) 0.83 (0-1.0) k/uL Eosinophils # Not Reportable Basophils # Not Reportable Nucleated RBCs 0 (0-0) /100 WBC Manual Slide Review Performed Reactive Lymphocytes Present PT 11.4 (9.0-12.0) sec INR 1.1 (<1.2) APTT 34.9 H (22.0-30.0) sec Sodium (137-145) mmol/L Potassium (3.5-5.1) mmol/L Chloride (98-107) mmol/L Carbon Dioxide (22-30) mmol/L Anion Gap mmol/L BUN (7-17) mg/dL Creatinine (0.52-1.04) mg/dL Est GFR (CKD-EPI)AfAm (>60 ml/min/1.73 sqM) Est GFR (CKD-EPI)NonAf (>60 ml/min/1.73 sqM) Glucose (74-99) mg/dL Plasma Lactic Acid Rafael (0.7-2.0) mmol/L Calcium (8.4-10.2) mg/dL Phosphorus (2.5-4.5) mg/dL Magnesium (1.6-2.3) mg/dL Total Bilirubin (0.2-1.3) mg/dL AST (14-36) U/L ALT (4-34) U/L Alkaline Phosphatase (38-126) U/L Troponin I (0.000-0.034) ng/mL NT-Pro-B Natriuret Pep pg/mL Total Protein (6.3-8.2) g/dL Albumin (3.5-5.0) g/dL Urine Color Yellow Urine Appearance Clear (Clear) Urine pH 6.5 (5.0-8.0) Ur Specific [place] 1.014 (1.001-1.035) Urine Protein Negative (Negative) Urine Glucose (UA) Negative (Negative) Urine Ketones 1+ H (Negative) Urine Blood Negative (Negative) Urine Nitrite Negative (Negative) Urine Bilirubin Negative (Negative) Urine Urobilinogen <2.0 (<2.0) mg/dL Ur Leukocyte Esterase Negative (Negative) 03/30/21 03/30/21 03/30/21 Range/Units 14:25 14:25 14:25 WBC (3.8-10.6) k/uL RBC (3.80-5.40) m/uL Hgb (11.4-16.0) gm/dL Hct (34.0-46.0) % MCV (80.0-100.0) fL MCH (25.0-35.0) pg MCHC (31.0-37.0) g/dL RDW (11.5-15.5) % Plt Count (150-450) k/uL MPV Neutrophils % Neutrophils % (Manual) % Band Neuts % (Manual) % Lymphocytes % Lymphocytes % (Manual) % Monocytes % Monocytes % (Manual) % Eosinophils % Basophils % Neutrophils # Neutrophils # (Manual) (1.3-7.7) k/uL Lymphocytes # Lymphocytes # (Manual) (1.0-4.8) k/uL Monocytes # Monocytes # (Manual) (0-1.0) k/uL Eosinophils # Basophils # Nucleated RBCs (0-0) /100 WBC Manual Slide Review Reactive Lymphocytes PT (9.0-12.0) sec INR (<1.2) APTT (22.0-30.0) sec Sodium 136 L (137-145) mmol/L Potassium 3.8 (3.5-5.1) mmol/L Chloride 101 (98-107) mmol/L Carbon Dioxide 22 (22-30) mmol/L Anion Gap 13 mmol/L BUN 20 H (7-17) mg/dL Creatinine 0.92 (0.52-1.04) mg/dL Est GFR (CKD-EPI)AfAm 67 (>60 ml/min/1.73 sqM) Est GFR (CKD-EPI)NonAf 58 (>60 ml/min/1.73 sqM) Glucose 114 H (74-99) mg/dL Plasma Lactic Acid Rafael 1.7 (0.7-2.0) mmol/L Calcium 9.5 (8.4-10.2) mg/dL Phosphorus 2.8 (2.5-4.5) mg/dL Magnesium 2.0 (1.6-2.3) mg/dL Total Bilirubin 0.8 (0.2-1.3) mg/dL AST 52 H (14-36) U/L ALT 39 H (4-34) U/L Alkaline Phosphatase 95 (38-126) U/L Troponin I <0.012 (0.000-0.034) ng/mL NT-Pro-B Natriuret Pep pg/mL Total Protein 6.7 (6.3-8.2) g/dL Albumin 4.1 (3.5-5.0) g/dL Urine Color Urine Appearance (Clear) Urine pH (5.0-8.0) Ur Specific [place] (1.001-1.035) Urine Protein (Negative) Urine Glucose (UA) (Negative) Urine Ketones (Negative) Urine Blood (Negative) Urine Nitrite (Negative) Urine Bilirubin (Negative) Urine Urobilinogen (<2.0) mg/dL Ur Leukocyte Esterase (Negative) 03/30/21 Range/Units 14:25 WBC (3.8-10.6) k/uL RBC (3.80-5.40) m/uL Hgb (11.4-16.0) gm/dL Hct (34.0-46.0) % MCV (80.0-100.0) fL MCH (25.0-35.0) pg MCHC (31.0-37.0) g/dL RDW (11.5-15.5) % Plt Count (150-450) k/uL MPV Neutrophils % Neutrophils % (Manual) % Band Neuts % (Manual) % Lymphocytes % Lymphocytes % (Manual) % Monocytes % Monocytes % (Manual) % Eosinophils % Basophils % Neutrophils # Neutrophils # (Manual) (1.3-7.7) k/uL Lymphocytes # Lymphocytes # (Manual) (1.0-4.8) k/uL Monocytes # Monocytes # (Manual) (0-1.0) k/uL Eosinophils # Basophils # Nucleated RBCs (0-0) /100 WBC Manual Slide Review Reactive Lymphocytes PT (9.0-12.0) sec INR (<1.2) APTT (22.0-30.0) sec Sodium (137-145) mmol/L Potassium (3.5-5.1) mmol/L Chloride (98-107) mmol/L Carbon Dioxide (22-30) mmol/L Anion Gap mmol/L BUN (7-17) mg/dL Creatinine (0.52-1.04) mg/dL Est GFR (CKD-EPI)AfAm (>60 ml/min/1.73 sqM) Est GFR (CKD-EPI)NonAf (>60 ml/min/1.73 sqM) Glucose (74-99) mg/dL Plasma Lactic Acid Rafael (0.7-2.0) mmol/L Calcium (8.4-10.2) mg/dL Phosphorus (2.5-4.5) mg/dL Magnesium (1.6-2.3) mg/dL Total Bilirubin (0.2-1.3) mg/dL AST (14-36) U/L ALT (4-34) U/L Alkaline Phosphatase (38-126) U/L Troponin I (0.000-0.034) ng/mL NT-Pro-B Natriuret Pep 151 pg/mL Total Protein (6.3-8.2) g/dL Albumin (3.5-5.0) g/dL Urine Color Urine Appearance (Clear) Urine pH (5.0-8.0) Ur Specific [place] (1.001-1.035) Urine Protein (Negative) Urine Glucose (UA) (Negative) Urine Ketones (Negative) Urine Blood (Negative) Urine Nitrite (Negative) Urine Bilirubin (Negative) Urine Urobilinogen (<2.0) mg/dL Ur Leukocyte Esterase (Negative) - EKG Data EKG Comments: Normal sinus rhythm, nonspecific ST abnormality, no signs of acute ST segment elevation. This is similar to her previous on 04/30/2019. Ventricular rate 97, [place] interval 162, QT 380. Disposition Clinical Impression: Fatigue, Dyspnea Disposition: HOME SELF-CARE Condition: Stable Instructions (If sedation given, give patient instructions): Dyspnea (ED) Additional Instructions: Please return to the Emergency Department if symptoms worsen or any other concerns. Increase your fluid intake over the next few days. Please follow up with your primary care physician. Is patient prescribed a controlled substance at d/c from ED?: No Referrals: Gael Sharma MD [Primary Care Provider] - 1-2 days Time of Disposition: 16:38
[2021-03-30 16:53] VITALS: BP 148/78; PULSE 80
== END 2021-03-30 16:53 | disposition home or self-care (01) ==
LOC: EC 12:21
DX: R06.00 Dyspnea, unspecified (principal); R53.83 Other fatigue; I10 Essential (primary) hypertension; Z79.899 Other long term (current) drug therapy; Z82.49 Family history of ischemic heart disease and other diseases of the circulatory system; Z88.6 Allergy status to analgesic agent; Z88.5 Allergy status to narcotic agent
CPT/HCPCS: 36415; 71046; 80053; 81003; 83605; 83735; 83880; 84100; 84484; 85025; 85610; 85730; 93005; 99285

== ENCOUNTER → 2021-11-11 | Outpatient (CLI) | payer MEDICARE ==
--- NOTE | 2021-11-12 08:23 | CT ---
EXAMINATION TYPE: CT angio head neck DATE OF EXAM: 11/11/2021 COMPARISON: None HISTORY: rt side lump when swallowing CT DLP: 459.90 mGycm CONTRAST: Performed with IV Contrast, patient injected with 65 mL of Isovue 370. Combination Contrast CTA cervical carotids and [place] CTA cervical carotids with 3-D recons truction Contrast CTA of the cervical carotids was performed 3-D reconstruction imaging obtained at a separate workstation. Right carotid system: Mild plaque is seen of the right common carotid artery. There is moderate calc ified plaque also noted at the carotid bulb and proximal ICA. Approximately 4 cm from the origin of t he right internal carotid artery there is occlusion noted which appears to reconstitute distally via a branch of the external carotid artery.. ECA is patent. Right vertebral artery appears unremarkable . Left carotid system: Mild plaque is seen of the left common carotid artery. There is mild plaque als o noted at the carotid bulb and proximal ICA. No significant diameter reduction. ECA is patent. Lef t vertebral artery appears unremarkable. Tiny thyroid nodules noted. IMPRESSION: 1. 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 2. Tiny thyroid nodules identified. CTA [place] with 3-D reconstruction Contrast CTA of the [place] was performed 3-D reconstruction imaging obtained at a separate workstation. Vertebrobasilar system as well as intracranial portions of the internal carotid arteries and their [place] tributaries are patent. I do not see evidence for sizable aneurysm or vascular malformation. Pl ease note MRI provides greater sensitivity and specificity. Visualized brain appears grossly unremar kable. IMPRESSION: 1. No significant abnormality. NASCET criteria was used in interpretation of this exam?
== END | disposition home or self-care (01) ==
LOC: RADCTMAIN 15:16
PROVIDERS: ATTEND Family Medicine
DX: E04.1 Nontoxic single thyroid nodule (principal); I65.21 Occlusion and stenosis of right carotid artery
CPT/HCPCS: 82565; 84520; 70496; 70498; 36415; Q9967

== ENCOUNTER 2022-04-03 07:35 | Emergency (ER) | payer MEDICARE ==
[2022-04-03 08:02] VITALS: TEMP 99.8
--- NOTE | 2022-04-03 08:18 | ED ---
General Adult HPI - General Chief complaint: Urogenital Stated complaint: possible UTI Time Seen by Provider: 04/03/22 07:36 Source: patient Mode of arrival: ambulatory Limitations: no limitations - History of Present Illness Initial comments: Dictation was produced using [employer] dictation software. please excuse any grammatical, word or spelling errors. Chief Complaint: 86-year-old female presents emergency Department with 2 days of dysuria History of Present Illness: 86-year-old female presents emergency Department with 2 days of dysuria. Patient has had UTIs in the past most recent UTI has been last year. Patient denies any hospital admissions for UTI. Patient has had some chills. Denies any fevers. Patient denies any flank pain. She does report associated urinary urgency and frequency. The ROS documented in this emergency department record has been reviewed and confirmed by me. Those systems with pertinent positive or negative responses have been documented in the HPI. All other systems are other negative and/or noncontributory. PHYSICAL EXAM: General Impression: Alert and oriented x3, not in acute distress HEENT: Normocephalic atraumatic, extra-ocular movements intact, pupils equal and reactive to light bilaterally, mucous membranes moist. Cardiovascular: Heart regular rate and rhythm Chest: Able to complete full sentences, no retractions, no tachypnea Abdomen: abdomen soft, non-tender, non-distended, no organomegaly Musculoskeletal: Pulses present and equal in all extremities, no peripheral ed michelle, no CVA tenderness Motor: no focal deficits noted Neurological: CN II-XII grossly intact, no focal motor or sensory deficits noted Skin: Intact with no visualized rashes Psych: Normal affect and mood ED course: 86-year-old well-appearing female presents emergency department for dysuria. Signs upon arrival shows temperature 99.8, heart rate of 111, rest of vital signs within acceptable limits. Patient's well-appearing at bedside. Clinically she does not have any symptoms to suggest pyelonephritis. Laboratory evaluation shows her to the 182 white blood cells. Nitrate negative. Clinical presentation consistent with urinary tract infection. Patient given 1 g of ceftriaxone IM. Patient provided with prescription for Keflex. She does not have any old urine cultures for review in the electronic medical records. Return precautions discussed. - Related Data Home Medications Medication Instructions Recorded Confirmed Atorvastatin [Lipitor] 20 mg PO HS 02/11/17 03/30/21 Multivitamins, Thera [Multivitamin 1 tab PO DAILY 02/11/17 03/30/21 (formulary)] estradioL [Estradiol] 0.5 mg PO DAILY 02/11/17 03/30/21 quiNIDine sulfate [quiNIDine 300 mg PO DAILY 02/11/17 03/30/21 SULFATE] Furosemide [Lasix] 20 mg PO DAILY 05/25/17 03/30/21 Losartan/Hydrochlorothiazide 1 tab PO DAILY 04/30/19 03/30/21 [Losartan-Hctz 100-25 mg Tab] Ascorbic Acid [Vitamin C] 1,000 mg PO DAILY 03/30/21 03/30/21 Biotin 10,000 mcg PO DAILY 03/30/21 03/30/21 Cholecalciferol [Vitamin D3 (25 50 mcg PO DAILY 03/30/21 03/30/21 Mcg = 1000 Iu)] Magnesium 250 mg PO DAILY 03/30/21 03/30/21 Omeprazole [PriLOSEC] 20 mg PO DAILY 03/30/21 03/30/21 Previous Rx's Medication Instructions Recorded Cefpodoxime Proxetil [Vantin] 200 mg PO Q12HR 10 Days #20 tab 04/03/22 Allergies Allergy/AdvReac Type Severity Reaction Status Date / Time NSAIDS (Non-Steroidal AdvReac Unknown States Hx Verified 04/03/22 08:02 Anti-Inflamma of Bleeding Ulcer (no nsaids) codeine AdvReac Nausea & Verified 04/03/22 08:02 Vomiting Review of Systems ROS Statement: Those systems with pertinent positive or pertinent negative responses have been documented in the HPI. ROS Other: All systems not noted in ROS Statement are negative. Past Medical History Past Medical History: Coronary Artery Disease (CAD), Hyperlipidemia, Hypertension Additional Past Medical History / Comment(s): kidney stones, ulcers, blocked carotid arteries on [place] History of Any Multi-Drug Resistant Organisms: None Reported Past Surgical History: Hysterectomy, Orthopedic Surgery Additional Past Surgical History / Comment(s): lithotripsy, hip and knee surgery Past Anesthesia/Blood Transfusion Reactions: Postoperative Nausea & Vomiting (PONV) Past Psychological History: No Psychological Hx Reported Smoking Status: Never smoker Past Alcohol Use History: None Reported Past Drug Use History: None Reported - Past Family History Father Family Medical History: CVA/TIA, Hypertension Mother Family Medical History: Hypertension General Exam Limitations: no limitations Course Vital Signs 04/03/22 07:59 Temperature 99.8 F H Pulse Rate 111 H Respiratory 18 Rate Blood Pressure 151/74 O2 Sat by Pulse 96 Oximetry Medical Decision Making - Lab Data Lab Results 04/03/22 Range/Units 08:15 Urine Color Light Yellow Urine Appearance Cloudy H (Clear) Urine pH 7.5 (5.0-8.0) Ur Specific [place] 1.010 (1.001-1.035) Urine Protein Trace H (Negative) Urine Glucose (UA) Negative (Negative) Urine Ketones Negative (Negative) Urine Blood Small H (Negative) Urine Nitrite Negative (Negative) Urine Bilirubin Negative (Negative) Urine Urobilinogen <2.0 (<2.0) mg/dL Ur Leukocyte Esterase Large H (Negative) Urine RBC 18 H (0-5) /hpf Urine WBC >182 H (0-5) /hpf Ur Squamous Epith Cells 1 (0-4) /hpf Urine Bacteria Rare H (None) /hpf Urine Mucus Rare H (None) /hpf Disposition Clinical Impression: Urinary tract infection Disposition: HOME SELF-CARE Condition: Good Instructions (If sedation given, give patient instructions): Urinary Tract Infection in Women (ED) Prescriptions: Cefpodoxime Proxetil [Vantin] 200 mg PO Q12HR 10 Days #20 tab Is patient prescribed a controlled substance at d/c from ED?: No Referrals: Bobby Young MD [Primary Care Provider] - 1-2 days Time of Disposition: 09:
[2022-04-03 08:54] LABS: Appearance,Urine Cloudy (Clear); Bacteria,Urine Rare /hpf; Bilirubin,Urine Negative (Negative); Blood,Urine Small (Negative); Color,Urine Light Yellow; Glucose,Urine (UA) Negative (Negative); Ketones,Urine Negative (Negative); Leukocyte Esterase,Urine Large (Negative); Mucus,Urine Rare /hpf; Nitrite,Urine Negative (Negative); PH, Urine 7.5 (5.0-8.0); Protein,Urine Trace (Negative); RBC,Urine 18 /hpf (0-5); Squamous Epithelial Cell,Urine 1 /hpf (0-4); Urobilinogen,Urine <2.0 mg/dL (<2.0); WBC,Urine >182 /hpf (0-5)
[2022-04-03] MEDS ORDERED: cefTRIAXone 1,000 MG VIAL (IM USE) IM STA (08:58)
[2022-04-03 09:25] VITALS: BP 110/71; PULSE 65; RESP 16
== END 2022-04-03 09:25 | disposition home or self-care (01) ==
LOC: EC 07:35
DX: N39.0 Urinary tract infection, site not specified (principal); I10 Essential (primary) hypertension; E78.9 Disorder of lipoprotein metabolism, unspecified; Z88.6 Allergy status to analgesic agent; Z88.5 Allergy status to narcotic agent; Z79.899 Other long term (current) drug therapy
CPT/HCPCS: 81001; 87086; 99283; 96372; J0696

== ENCOUNTER → 2022-04-26 | Outpatient (CLI) | payer MEDICARE ==
--- NOTE | 2022-04-26 13:55 | US ---
EXAMINATION TYPE: US thyroid st tissue head/neck DATE OF EXAM: 04/26/2022 COMPARISON: CTA head and neck November 11, [address] neck 2016 CLINICAL HISTORY: L04.9 acute lymphadenitis uspec. Pt states right submandibular gland "flares up" ev cesar tuta-[id number] x couple of months. Pt states right now it does not feel flared up. Pt had CT in [address] on right submandibular gland GLAND SIZE: In area of pt's concern, right submandibular gland, there are calcifications in the central part of t he gland. Right gland similar in size to the left submandibular gland when compared. IMPRESSION: Multiple sialoliths in the right submandibular glands are identified correlating with mos t recent CT extending towards the duct. No asymmetric enlargement or fat stranding to suggest acute i nflammation at this time. Findings correlate with most recent CT. Sialoliths are new from the 2016 st udy.
== END | disposition home or self-care (01) ==
LOC: RADUSWWP 06:44
PROVIDERS: ATTEND Family Medicine
DX: K11.5 Sialolithiasis (principal)
CPT/HCPCS: 76536